=== PATIENT | male | born 1955 | race Caucasian/White ===

== ENCOUNTER 2017-04-27 09:08 | Inpatient (IN) | payer MEDICARE ==
[2017-04-27] VITALS (11 sets, daily range): BP systolic 116–172; BP diastolic 58–79; PULSE 63–87; RESP 16–20; TEMP 97.7–98.4; O2SAT 97–99
[~2017-04-27] VITALS: Ht 170.2 cm; Wt 102.2 kg
[~2017-04-27 09:08] MED LIST: ATEN100T PO; BETA0.054 TOPICAL; MEDI220T PO; POTA10CA PO; TRAM50TA PO
--- NOTE | 2017-04-27 09:42 | PD ---
HPI Chief Complaint: Abdominal Pain Time Seen by Provider: 09:27 Travel History International Travel<30 days: No Contact w/Intl Traveler<30days: No Traveled to known affect area: No History of Present Illness HPI Patient is a 62-year-old male presents to emergency room with complaints of chest and abdominal pain. Patient reports that since Wednesday night (3 days ago ), he has been having abdominal pain. Patient reports that he ate spaghetti and meatballs for dinner, reports that after that, he had severe epigastric pain. Patient reports that pain progressed until the next day, reports that he has severe pain after he eats a meal, reports that he is epigastric in nature, reports that he gets diaphoretic and nauseous with the symptoms. Reports that symptoms can last for an hour and a half to alot longer and usually resolves by itself. Patient describes this sensation as a "tearing sensation to my chest". Reports that he has never had this in the past. Patient reports that he woke up this morning and drank a cup of coffee which "set off all my symptoms." Denies history of CO, ACS. PFSH Past Medical History High Cholesterol: Yes Diabetes: No Diminished Hearing: No Hypertension: Yes Musculoskeletal: Yes (CHRONIC BACK PAIN) Past Surgical History Surgical History: No Previous Surgery Social History Alcohol Use: No Tobacco Use: No Substance Use: No Allergies-Medications (Allergen,Severity, Reaction): Coded Allergies: niacin (Unverified Allergy, Mild, Rash, 04/27/17) Reported Meds & Prescriptions Reported Meds & Active Scripts Active Reported Potassium Chloride ER (Potassium Chloride) 10 Meq Cap 10 Meq PO DAILY Tramadol (Tramadol HCl) 50 Mg Tab 50 Mg PO Q6H PRN Atenolol 100 Mg Tab 100 Mg PO HS Review of Systems General / Constitutional: No: Fever Eyes: No: Visual changes HENT: No: Headaches Cardiovascular: Positive: Chest Pain or Discomfort, Diaphoresis Respiratory: No: Shortness of Breath Gastrointestinal: Positive: Nausea, Vomiting, Abdominal Pain, No: Diarrhea, Constipation Genitourinary: No: Dysuria Musculoskeletal: No: Pain Skin: No Rash Neurologic: No: Weakness Psychiatric: No: Depression Endocrine: No: Polydipsia Hematologic/Lymphatic: No: Easy Bruising Physical Exam Narrative GENERAL: Moderate distress SKIN: Focused skin assessment warm/dry. Patient diaphoretic on exam HEAD: Atraumatic. Normocephalic. EYES: Pupils equal and round. No scleral icterus. No injection or drainage. ENT: No nasal bleeding or discharge. Mucous membranes pink and moist. NECK: Trachea midline. No JVD. CARDIOVASCULAR: Regular rate and rhythm. No murmur appreciated. RESPIRATORY: No accessory muscle use. Clear to auscultation. Breath sounds equal bilaterally. GASTROINTESTINAL: Abdomen soft, patient with increased tenderness to his epigastrium to an abdomen diffusely MUSCULOSKELETAL: No obvious deformities. No clubbing. No cyanosis. No edema. NEUROLOGICAL: Awake and alert. No obvious cranial nerve deficits. Motor grossly within normal limits. Normal speech. PSYCHIATRIC: Appropriate mood and affect; insight and judgment normal. Data Data Last Documented VS Vital Signs Date Time Temp Pulse Resp B/P (MAP) Pulse Ox O2 Delivery O2 Flow Rate FiO2 04/27/17 11:59 74 16 143/68 (93) 99 Room Air 04/27/17 09:20 2.00 04/27/17 09:18 97.7 Orders Orders B-Type Natriuretic Peptide (04/27/17 09:33) Ckmb (Isoenzyme) Profile (04/27/17 09:33) Complete Blood Count With Diff (04/27/17 09:33) Comprehensive Metabolic Panel (04/27/17 09:33) Magnesium (Mg) (04/27/17 09:33) Prothrombin Time / Inr (Pt) (04/27/17 09:33) Act Partial Throm Time (Ptt) (04/27/17 09:33) Troponin I (04/27/17 09:33) Lipase (04/27/17 09:33) Chest, Single Ap (04/27/17 09:33) Ecg Monitoring (04/27/17 09:33) Bilateral Bp Monitoring (04/27/17 09:33) Iv Access Insert/Monitor (04/27/17 09:33) Oximetry (04/27/17 09:33) Sodium Chloride 0.9% Flush (Ns Flush) (04/27/17 09:45) Cta Thor Abd Aorta W Iv C W3d (04/27/17 09:33) Sodium Chlor 0.9% 1000 Ml Inj (Ns 1000 M (04/27/17 09:45) Famotidine Inj (Pepcid Inj) (04/27/17 09:45) Al-Mag Hy-Si 40-40-4 Mg/Ml Liq (Mag-Al P (04/27/17 09:45) Lidocaine 2% Viscous (Xylocaine 2% Visco (04/27/17 09:45) Ckmb (Isoenzyme) Profile (04/27/17 12:00) Troponin I (04/27/17 12:00) CKMB (04/27/17 09:00) CKMB% (04/27/17 09:00) Us Abdomen Gallbladder (04/27/17 ) Potassium Chlor 20 Meq Premix (Kcl 20 Me (04/27/17 10:45) Iohexol 350 Inj (Omnipaque 350 Inj) (04/27/17 10:59) Consult General Surgery (04/27/17 ) Electrocardiogram (04/27/17 ) Sodium Chlor 0.9% 1000 Ml Inj (Ns 1000 M (04/27/17 12:15) Admit Order (Ed Use Only) (04/27/17 12:06) Labs Laboratory Tests Test 04/27/17 09:00 04/27/17 11:58 White Blood Count 11.8 TH/MM3 Red Blood Count 5.55 MIL/MM3 Hemoglobin 17.0 GM/DL Hematocrit 50.2 % Mean Corpuscular Volume 90.4 FL Mean Corpuscular Hemoglobin 30.6 PG Mean Corpuscular Hemoglobin Concent 33.8 % Red Cell Distribution Width 13.1 % Platelet Count 276 TH/MM3 Mean Platelet Volume 8.5 FL Neutrophils (%) (Auto) 56.7 % Lymphocytes (%) (Auto) 23.6 % Monocytes (%) (Auto) 12.4 % Eosinophils (%) (Auto) 6.5 % Basophils (%) (Auto) 0.8 % Neutrophils # (Auto) 6.6 TH/MM3 Lymphocytes # (Auto) 2.8 TH/MM3 Monocytes # (Auto) 1.5 TH/MM3 Eosinophils # (Auto) 0.8 TH/MM3 Basophils # (Auto) 0.1 TH/MM3 CBC Comment DIFF FINAL Differential Comment Prothrombin Time 11.1 SEC Prothromb Time International Ratio 1.0 RATIO Activated Partial Thromboplast Time 28.8 SEC Blood Urea Nitrogen 15 MG/DL Creatinine 0.86 MG/DL Random Glucose 112 MG/DL Total Protein 8.1 GM/DL Albumin 3.6 GM/DL Calcium Level 9.0 MG/DL Magnesium Level 2.2 MG/DL Alkaline Phosphatase 139 U/L Aspartate Amino Transf (AST/SGOT) 153 U/L Alanine Aminotransferase (ALT/SGPT) 315 U/L Total Bilirubin 4.4 MG/DL Sodium Level 137 MEQ/L Potassium Level 3.3 MEQ/L Chloride Level 96 MEQ/L Carbon Dioxide Level 31.0 MEQ/L Anion Gap 10 MEQ/L Estimat Glomerular Filtration Rate 90 ML/MIN Total Creatine Kinase 158 U/L Creatine Kinase MB 1.5 NG/ML Troponin I LESS THAN 0.02 NG/ML B-Type Natriuretic Peptide 13 PG/ML Lipase 442 U/L [facility] Medical Decision Making Medical Screen Exam Complete: Yes Emergency Medical Condition: Yes Medical Record Reviewed: Yes Interpretation(s) EKG at 0917 Sinus maddie at 59bpm, qt/qtc: 418/418, nonspecific t wave changes Vital Signs Date Time Temp Pulse Resp B/P (MAP) Pulse Ox O2 Delivery O2 Flow Rate FiO2 04/27/17 09:18 97.7 64 18 172/79 (110) 98 Differential Diagnosis Differential includes ACS, arrhythmia, aortic dissection, gastritis, gastric enteritis, esophagitis, gastric ulcer, colitis Narrative Course 62-year-old male who presents to emergency room with complaints of abdominal pain and chest pain has been intermittent for the past 3 days. Patient reports that symptoms are exacerbated by eating or drinking anything including water. Patient reports the symptoms began this morning after he drank a cup of coffee. He shouldn't presents to emergency room diaphoretic, patient with epigastric tenderness and diffuse abdominal pain. Patient was placed on a cardiac rehabilitation program director upon arrival to the emergency room. An EKG was obtained - patient with no acute changes. Lab work including cardiac enzymes, CBC, CMP, lipase was ordered. CTA was ordered to rule out dissection as patient has tearing sensation see epigastrium. Plan to continue to monitor Vital Signs Date Time Temp Pulse Resp B/P (MAP) Pulse Ox O2 Delivery O2 Flow Rate FiO2 04/27/17 10:30 64 16 145/73 (97) 98 Room Air 04/27/17 09:30 63 16 138/67 (90) 04/27/17 09:20 16 98 Nasal Cannula 2.00 04/27/17 09:18 97.7 64 18 172/79 (110) 98 Laboratory Tests Test 04/27/17 09:00 White Blood Count 11.8 TH/MM3 (4.0-11.0) Red Blood Count 5.55 MIL/MM3 (4.50-5.90) Hemoglobin 17.0 GM/DL (13.0-17.0) Hematocrit 50.2 % (39.0-51.0) Mean Corpuscular Volume 90.4 FL (80.0-100.0) Mean Corpuscular Hemoglobin 30.6 PG (27.0-34.0) Mean Corpuscular Hemoglobin Concent 33.8 % (32.0-36.0) Red Cell Distribution Width 13.1 % (11.6-17.2) Platelet Count 276 TH/MM3 (150-450) Mean Platelet Volume 8.5 FL (7.0-11.0) Neutrophils (%) (Auto) 56.7 % (16.0-70.0) Lymphocytes (%) (Auto) 23.6 % (9.0-44.0) Monocytes (%) (Auto) 12.4 % (0.0-8.0) Eosinophils (%) (Auto) 6.5 % (0.0-4.0) Basophils (%) (Auto) 0.8 % (0.0-2.0) Neutrophils # (Auto) 6.6 TH/MM3 (1.8-7.7) Lymphocytes # (Auto) 2.8 TH/MM3 (1.0-4.8) Monocytes # (Auto) 1.5 TH/MM3 (0-0.9) Eosinophils # (Auto) 0.8 TH/MM3 (0-0.4) Basophils # (Auto) 0.1 TH/MM3 (0-0.2) CBC Comment DIFF FINAL Differential Comment Prothrombin Time 11.1 SEC (9.8-11.6) Prothromb Time International Ratio 1.0 RATIO Activated Partial Thromboplast Time 28.8 SEC (24.3-30.1) Blood Urea Nitrogen 15 MG/DL (7-18) Creatinine 0.86 MG/DL (0.60-1.30) Random Glucose 112 MG/DL (74-106) Total Protein 8.1 GM/DL (6.4-8.2) Albumin 3.6 GM/DL (3.4-5.0) Calcium Level 9.0 MG/DL (8.5-10.1) Magnesium Level 2.2 MG/DL (1.5-2.5) Alkaline Phosphatase 139 U/L (45-117) Aspartate Amino Transf (AST/SGOT) 153 U/L (15-37) Alanine Aminotransferase (ALT/SGPT) 315 U/L (12-78) Total Bilirubin 4.4 MG/DL (0.2-1.0) Sodium Level 137 MEQ/L (136-145) Potassium Level 3.3 MEQ/L (3.5-5.1) Chloride Level 96 MEQ/L (98-107) Carbon Dioxide Level 31.0 MEQ/L (21.0-32.0) Anion Gap 10 MEQ/L (5-15) Estimat Glomerular Filtration Rate 90 ML/MIN (>89) Total Creatine Kinase 158 U/L (39-308) Creatine Kinase MB 1.5 NG/ML (0.5-3.6) Troponin I LESS THAN 0.02 NG/ML B-Type Natriuretic Peptide 13 PG/ML (0-100) Lipase 442 U/L (73-393) AST 153 ALT 315 Tbili 4.4 Lipase 442 RUQ US ordered Last Impressions Chest X-Ray 04/27/17932 Signed Impressions: Service Date/Time: Thursday, April 27, 2017 09:56 - CONCLUSION: No acute disease. Salvador Dickerson Jr., MD Aorta CTA 04/27/17932 Signed Impressions: Service Date/Time: Thursday, April 27, 2017 10:44 - CONCLUSION: 1. No aortic dissection or aneurysm. 2. Mild coronary artery atherosclerotic calcifications. 3. Hepatic steatosis. 4. Cholelithiasis. Salvador Dickerson Jr., MD Gall Bladder Ultrasound 04/27/17 0000 Signed Impressions: Service Date/Time: Thursday, April 27, 2017 11:08 - CONCLUSION: 1. Gallstones in the gallbladder. 2. Upper limits of normal or mildly prominent common bile duct 7 mm. No dilated biliary ducts. Recommend correlation with liver laboratory values. 3. Diffusely enlarged fatty liver. Jono Zaldivar MD Patient with gallstones and gallbladder, mildly prominent common bile duct, T bili of 4.4, AST 153, ALT 315, alkaline phosphatase 139, lipase [address] Anderson who will see patient in consult. Concern for biliary obstruction. Patient will require further workup including ERCP. Plan to admit to medicine service and transferred to [facility] at request of Dr. Allen Case reviewed with Dr. Page who accepts pt to service Diagnosis Primary Impression: Biliary obstruction Admitting Information Admitting Physician Requests: Pati Pinto DO Apr 27, 2017 09:42
[2017-04-27] MEDS ORDERED: FAMOTIDINE 20 MG/2 ML VIAL IV PUSH ONE (09:45)
[2017-04-27] MEDS ORDERED: LIDOCAINE VISCOUS 2% SOLN 15 ML UDC PO ONE (09:45)
[2017-04-27] MEDS ORDERED: SODIUM CHLOR 0.9% 1000 ML INJ 1,000 ML IV ONE ×2 (09:45→12:15)
[2017-04-27] MEDS ORDERED: ALUMINUM/MAGNESIUM/SIMETH 30 ML CUP PO ONE (09:45)
[2017-04-27] MEDS: SODIUM CHLORIDE 0.9% FLUSH 10 ML FLUSH IVF PRN ×2 (09:54→12:09)
[2017-04-27 09:55] LABS: CHLORIDE 96 MEQ/L (98-107); POTASSIUM 3.3 MEQ/L (3.5-5.1); SODIUM (NA) 137 MEQ/L (136-145)
[2017-04-27 09:58] LABS: ANION GAP 10 MEQ/L (5-15); BLOOD UREA NITROGEN 15 MG/DL (7-18); MAGNESIUM 2.2 MG/DL (1.5-2.5)
[2017-04-27 09:59] LABS: APTT (PATIENT) 28.8 SEC (24.3-30.1); AUTOMATED NEUTROPHIL # 6.6 TH/MM3 (1.8-7.7); BASOPHIL # 0.1 TH/MM3 (0-0.2); BASOPHIL % 0.8 % (0.0-2.0); EOSINOPHIL # 0.8 TH/MM3 (0-0.4); EOSINOPHIL % 6.5 % (0.0-4.0); HEMATOCRIT 50.2 % (39.0-51.0); LYMPH % 23.6 % (9.0-44.0); LYMPHOCYTE # 2.8 TH/MM3 (1.0-4.8); MEAN CELL VOLUME 90.4 FL (80.0-100.0); MEAN CORPUSCULAR HEMOGLOBIN 30.6 PG (27.0-34.0); MEAN CORPUSCULAR HGB CONC 33.8 % (32.0-36.0); MONO % 12.4 % (0.0-8.0); NEUT % 56.7 % (16.0-70.0); PLATELET COUNT 276 TH/MM3 (150-450); PROTHROMBIN TIME - PATIENT 11.1 SEC (9.8-11.6); RED BLOOD COUNT 5.55 MIL/MM3 (4.50-5.90); RED CELL DISTRIBUTION WIDTH 13.1 % (11.6-17.2); WHITE BLOOD COUNT 11.8 TH/MM3 (4.0-11.0)
[2017-04-27 10:01] LABS: ALT (GPT) 315 U/L (12-78); AST (GOT) 153 U/L (15-37); GLOMERULAR FILTRATION RATE 90 ML/MIN (>89)
[2017-04-27 10:02] LABS: HEMO FLAGS DIFF FINAL
[2017-04-27 10:03] LABS: TOTAL BILIRUBIN ADULT 4.4 MG/DL (0.2-1.0)
[2017-04-27 10:04] LABS: ALKALINE PHOSPHATASE 139 U/L (45-117); CREATINE KINASE 158 U/L (39-308)
--- NOTE | 2017-04-27 10:11 | RADRPT ---
EXAM DATE/TIME: 04/27/2017 09:56 [facility] COMPARISON: No previous studies available for comparison. INDICATIONS : Epigastric pain this morning. Nausea and vomiting for 1 week. MEDICAL HISTORY : Hypertension. Hypercholesterolemia. SURGICAL HISTORY : None. ENCOUNTER: Initial ACUITY: 1 week PAIN SCORE: 7/10 LOCATION: Bilateral chest FINDINGS: A single view of the chest demonstrates the lungs to be symmetrically aerated without evidence of mas s, infiltrate or effusion. Prominence to the right peritracheal stripe terminates at the level the cl avicular head in this patient is rotated towards the right. This prominence is felt related to the pa tient's vasculature owing to the rotation. The cardiomediastinal contours are unremarkable. Osseous structures are intact. CONCLUSION: No acute disease. Salvador Dickerson Jr., MD on April 27, 2017 at 10:08 Board Certified Radiologist. This report was verified electronically.
[2017-04-27 10:16] LABS: CKMB 1.5 NG/ML (0.5-3.6)
[2017-04-27] MEDS ORDERED: IOHEXOL 350 MG/ML 10 ML VIAL (for RAD DIAG) IVCONTRAST ONE (10:59)
--- NOTE | 2017-04-27 11:34 | RADRPT ---
EXAM DATE/TIME: 04/27/2017 11:08 [facility] COMPARISON: No previous studies available for comparison. INDICATIONS : Right upper quadrant pain. MEDICAL HISTORY : Hypercholesterolemia. Hypertension. SURGICAL HISTORY : None. ENCOUNTER: Initial ACUITY: 3 days PAIN SCORE: 10 LOCATION: Right upper quadrant MEASUREMENTS: LIVER: 20 cm length COMMON DUCT: 7 mm RIGHT KIDNEY: 12.1 x 6.4 x 6.8 cm FINDINGS: LIVER: Liver is diffusely enlarged with fatty infiltration. No dilated biliary ducts. The portal system is p atent. There is no evidence of ascites. COMMON DUCT: No intraluminal mass or stone visualized. GALLBLADDER: There are some stones in the gallbladder. The largest node measures 9 mm. No gallbladder wall thicken ing. However there may be a trace of fluid around the gallbladder. PANCREAS: Nonvisualized RIGHT KIDNEY: No evidence of hydronephrosis, stone, or mass. CONCLUSION: 1. Gallstones in the gallbladder. 2. Upper limits of normal or mildly prominent common bile duct 7 mm. No dilated biliary ducts. Recomm end correlation with liver laboratory values. 3. Diffusely enlarged fatty liver. Jono Zaldivar MD on April 27, 2017 at 11:30 Board Certified Radiologist. This report was verified electronically.
--- NOTE | 2017-04-27 11:35 | RADRPT ---
EXAM DATE/TIME: 04/27/2017 10:44 [facility] COMPARISON: No previous studies available for comparison. INDICATIONS : Severe chest and abdominal pain. Diaphoretic and nauseous. Evaluate for dissection. IV CONTRAST: 95 cc Omnipaque 350 (iohexol) IV RADIATION DOSE: 24.22 CTDIvol (mGy) MEDICAL HISTORY : Hypertension. Hypercholesterolemia. SURGICAL HISTORY : None. ENCOUNTER: Initial ACUITY: 3 days PAIN SCALE: 8/10 LOCATION: chest TECHNIQUE: Volumetric scanning was performed using a multi-row detector CT scanner. The data was post processed with a variety of visualization algorithms including full volume maximum intensity projection, multi -planar sliding thin slab reformation, curved planar reformation, and surface rendering techniques. Using automated exposure control and adjustment of the mA and/or kV according to patient size, radiat ion dose was kept as low as reasonably achievable to obtain optimal diagnostic quality images. DICOM format image data is available electronically for review and comparison. FINDINGS: Thoracic/abdominal aorta: The thoracic and abdominal aorta shows a normal caliber and course. No aneurysm or dissection. The or igin of the arch vessels are obscured by beam hardening artifact from the contrast within the brachio cephalic vein. The visualized portions of the arch vessels are patent. The inflow vessels, celiac, SM A, KARON, and renal arteries are patent bilaterally. Heart and mediastinum: The heart is normal in size. No pericardial effusion. Coronary artery atherosclerotic calcifications are noted. Pulmonary arteries are normal in caliber. No adenopathy or mass. Lung parenchyma: The lungs are clear. Small calcified granulomas seen on the left. No worrisome nodules. No infiltrate s. No effusions. Other structures: Tiny calcified gallstones within an otherwise normal-appearing gallbladder. Diffuse hepatic steatosis . A degenerative lumbar spine. A sclerotic focus involving the proximal right femur without bony dest ruction or endosteal scalloping. CONCLUSION: 1. No aortic dissection or aneurysm. 2. Mild coronary artery atherosclerotic calcifications. 3. Hepatic steatosis. 4. Cholelithiasis. Salvador Dickerson Jr., MD on April 27, 2017 at 11:26 Board Certified Radiologist. This report was verified electronically.
[2017-04-27] MEDS: POTASSIUM CHLOR 20 MEQ PREMIX 100 ML IV SCH ×2 (12:09→16:11)
[2017-04-27] MEDS ORDERED: MAGNESIUM HYDROXIDE SUSP 30 ML CUP PO PRN (12:15)
[2017-04-27] MEDS ORDERED: ACETAMINOPHEN 325 MG TAB PO PRN (12:15)
[2017-04-27] MEDS ORDERED: SODIUM CHLORIDE 0.9% FLUSH 10 ML FLUSH IV FLUSH PRN (12:15)
[2017-04-27] MEDS ORDERED: ONDANSETRON HCL 4 MG/2 ML VIAL IVP PRN (12:15)
[2017-04-27] MEDS ORDERED: LACTULOSE SYRUP 20 GM/30 ML CUP PO PRN (12:15)
[2017-04-27] MEDS ORDERED: HYDROmorphone HCL PF 0.5 MG/0.5 ML SYRINGE IV PUSH PRN (12:15)
[2017-04-27] MEDS ORDERED: ACETAMINOPHEN/HYDROcodone 325 MG/5 MG TAB PO PRN (12:15)
[2017-04-27] MEDS ORDERED: SENNOSIDES 8.6 MG TAB PO PRN (12:15)
[2017-04-27] MEDS ORDERED: NALOXONE HCL 0.4 MG/ML AMP IV PUSH PRN (12:15)
[2017-04-27] MEDS ORDERED: BISACODYL 10 MG SUPP RECTAL PRN (12:15)
[2017-04-27 12:25] LABS: CREATINE KINASE 128 U/L (39-308)
[2017-04-27 12:37] LABS: CKMB 1.3 NG/ML (0.5-3.6)
[2017-04-27] MEDS: SODIUM CHLOR 0.9% 1000 ML INJ 1,000 ML IV SCH ×2 (14:12→22:22)
[2017-04-27] MEDS ORDERED: AMPICILLIN-SULBACTAM INJ 3 GM VIAL IM SCH (15:00)
--- NOTE | 2017-04-27 15:13 | HHI.HP ---
HPI Service [facility] Hospitalists Primary Care Physician Kena Reyes MD Admission Diagnosis Biliary Duct obstruction Diagnoses: Chief Complaint: Abdominal pain Nausea/vomiting Travel History International Travel<30 Days: No Contact w/Intl Traveler <30 Da: No Traveled to Known Affected Are: No History of Present Illness Written by Katja Hernandez, acting as scribe for Dr. Page on 04/27/17 at 15: 13. This note was transcribed by scribe Katja Hernandez PA-C. I, Dr. Shayne Page personally performed the history, physical exam, and medical decision making; and confirmed the accuracy of the information in the transcribed note. Authenticated by Dr. Shayne Page on 04/27/17 at 15:15. This is a 62-year-old male with a past medical history significant for hypertension, dyslipidemia and chronic back pain who presented to [facility] [address] ED with complaints of abdominal pain for the past 3 days. Patient states that on Wednesday after eating spaghetti and meatballs he stood up took a deep breath and felt a "burning snap" rib cage. Patient states that the course of the evening the abdominal pain moved down to his abdomen and then dissipated on its own around 1:00 on Wednesday morning. He reports having similar but more severe symptoms following breakfast on Wednesday morning and then after eating dinner on Wednesday night both times resolving on its own after several hours. Wednesday he did not eat anything at all for a few any abdominal pain return. Patient reports that this morning he had a cup of coffee after he developed the abdominal pain again and decided to come into the ED for further evaluation. Patient states that he's had some intermittent fever and chills following meals for the past few days. He also reports 1 episode of emesis early on Wednesday morning which may have had some blood in it but he attributed the redness to spaghetti he'd eaten the night before. He denies any chest pain or radiation of the epigastric pain to his back. Patient denies any complaints of diarrhea or constipation. He denies any blood in stool. He denies any previous EGD or colonoscopy. At present, patient denies any complaints of abdominal pain and reports feeling well at this time. In the ED, CT of the aorta was unremarkable. Troponins less than 0.022. BNP 13. Patient was found to have hyperbilirubinemia. Gallbladder ultrasound was obtained showing gallstones in the gallbladder and a mildly prominent common bile duct. Review of Systems Except as stated in HPI: all other systems reviewed are Neg Past Family Social History Past Medical History Hypertension Chronic back pain Dyslipidemia Past Surgical History Patient denies any previous surgical procedures Reported Medications Potassium Chloride ER (Potassium Chloride) 10 Meq Cap 10 Meq PO DAILY Tramadol (Tramadol HCl) 50 Mg Tab 50 Mg PO Q6H PRN Atenolol 100 Mg Tab 100 Mg PO HS Allergies: Coded Allergies: niacin (Unverified Allergy, Mild, Rash, 04/27/17) Active Ordered Medications Current Medications Medications (Trade) Dose Ordered Sig/Kathi Route Start Time Stop Time Status Last Admin Sodium Chloride 1,000 ml @ 100 mls/hr Q10H IV 04/27/17 12:06 04/27/17 14:12 (NS Flush) 2 ml UNSCH PRN IV FLUSH 04/27/17 12:15 (NS Flush) 2 ml BID IV FLUSH 04/27/17 21:00 (Tylenol) 650 mg Q4H PRN PO 04/27/17 12:15 (Zofran Inj) 4 mg Q6H PRN IVP 04/27/17 12:15 (Narcan Inj) 0.4 mg UNSCH PRN IV PUSH 04/27/17 12:15 (Salma-Colace) 1 tab BID PO 04/27/17 21:00 (Milk Of Magnesia Liq) 30 ml Q12H PRN PO 04/27/17 12:15 (Senokot) 17.2 mg Q12H PRN PO 04/27/17 12:15 (Dulcolax Supp) 10 mg DAILY PRN RECTAL 04/27/17 12:15 (Lactulose Liq) 30 ml DAILY PRN PO 04/27/17 12:15 (Dilaudid Pf Inj) 0.5 mg Q4H PRN IV PUSH 04/27/17 12:15 (Unasyn Inj) 3 gm Q6H IM 04/27/17 15:00 UNV Family History Mother, alive, age 103 Father, hypertension, coronary artery disease with RI age 67 Social History Patient denies any tobacco use. He denies any alcohol consumption. Denies any illicit drug use. Patient is and lives with his . Physical Exam Vital Signs Vital Signs Date Time Temp Pulse Resp B/P (MAP) Pulse Ox O2 Delivery O2 Flow Rate FiO2 04/27/17 14:09 04/27/17 13:56 83 16 152/72 (98) 98 Room Air 04/27/17 13:52 16 04/27/17 13:30 74 16 147/77 (100) 97 Room Air 04/27/17 13:00 75 16 140/78 (98) 97 Room Air 04/27/17 11:59 74 16 143/68 (93) 99 Room Air 04/27/17 11:30 77 16 147/76 (99) 04/27/17 11:30 16 04/27/17 10:30 64 16 145/73 (97) 98 Room Air 04/27/17 09:30 63 16 138/67 (90) 04/27/17 09:20 16 98 Nasal Cannula 2.00 04/27/17 09:18 97.7 64 18 172/79 (110) 98 Physical Exam GENERAL: This is a well-nourished, well-developed obese patient, in no apparent distress. Awake and alert. Pleasant and talkative. Appears comfortable. SKIN: No rashes, ecchymoses or lesions. Cool and dry. HEAD: Atraumatic. Normocephalic. No temporal or scalp tenderness. EYES: Pupils equal round and reactive. Extraocular motions intact. No scleral icterus. No injection or drainage. ENT: Nose without bleeding, purulent drainage. Throat without erythema, tonsillar hypertrophy or exudate. Uvula midline. Airway patent. NECK: Trachea midline. No lymphadenopathy. Supple, nontender, no meningeal signs. CARDIOVASCULAR: Regular rate and rhythm without murmurs, gallops, or rubs. RESPIRATORY: Clear to auscultation. Breath sounds equal bilaterally. No wheezes , rales, or rhonchi. GASTROINTESTINAL: Abdomen soft, non-tender, nondistended. No hepato-splenomegaly , or palpable masses. No guarding. MUSCULOSKELETAL: Extremities without clubbing, cyanosis, or edema. No joint tenderness, effusion, or edema noted. No calf tenderness. NEUROLOGICAL: Awake and alert. Able to move all extremities spontaneously. No focal neurologic findings appreciated. Normal speech. Laboratory Laboratory Tests Test 04/27/17 09:00 04/27/17 11:58 White Blood Count 11.8 Red Blood Count 5.55 Hemoglobin 17.0 Hematocrit 50.2 Mean Corpuscular Volume 90.4 Mean Corpuscular Hemoglobin 30.6 Mean Corpuscular Hemoglobin Concent 33.8 Red Cell Distribution Width 13.1 Platelet Count 276 Mean Platelet Volume 8.5 Neutrophils (%) (Auto) 56.7 Lymphocytes (%) (Auto) 23.6 Monocytes (%) (Auto) 12.4 Eosinophils (%) (Auto) 6.5 Basophils (%) (Auto) 0.8 Neutrophils # (Auto) 6.6 Lymphocytes # (Auto) 2.8 Monocytes # (Auto) 1.5 Eosinophils # (Auto) 0.8 Basophils # (Auto) 0.1 CBC Comment DIFF FINAL Differential Comment Prothrombin Time 11.1 Prothromb Time International Ratio 1.0 Activated Partial Thromboplast Time 28.8 Blood Urea Nitrogen 15 Creatinine 0.86 Random Glucose 112 Total Protein 8.1 Albumin 3.6 Calcium Level 9.0 Magnesium Level 2.2 Alkaline Phosphatase 139 Aspartate Amino Transf (AST/SGOT) 153 Alanine Aminotransferase (ALT/SGPT) 315 Total Bilirubin 4.4 Sodium Level 137 Potassium Level 3.3 Chloride Level 96 Carbon Dioxide Level 31.0 Anion Gap 10 Estimat Glomerular Filtration Rate 90 Total Creatine Kinase 158 128 Creatine Kinase MB 1.5 1.3 Troponin I LESS THAN 0.02 LESS THAN 0.02 B-Type Natriuretic Peptide 13 Lipase 442 Result Diagram: 04/27/1789904/27/17899 Imaging Last Impressions Chest X-Ray 04/27/17932 Signed Impressions: Service Date/Time: Thursday, April 27, 2017 09:56 - CONCLUSION: No acute disease. Salvador Dickerson Jr., MD Aorta CTA 04/27/17932 Signed Impressions: Service Date/Time: Thursday, April 27, 2017 10:44 - CONCLUSION: 1. No aortic dissection or aneurysm. 2. Mild coronary artery atherosclerotic calcifications. 3. Hepatic steatosis. 4. Cholelithiasis. Salvador Dickerson Jr., MD Gall Bladder Ultrasound 04/27/17 0000 Signed Impressions: Service Date/Time: Thursday, April 27, 2017 11:08 - CONCLUSION: 1. Gallstones in the gallbladder. 2. Upper limits of normal or mildly prominent common bile duct 7 mm. No dilated biliary ducts. Recommend correlation with liver laboratory values. 3. Diffusely enlarged fatty liver. MD Kobe Meza VTE Risk Assessment Kobe VTE Risk Assessment: Mod/High Risk (score >= 2) VTE Pharm Contraindication: possible pending procedure Caprini Risk Assessment Model Point Value = 1 Point Value = 2 Point Value = 3 Point Value = 5 Age 41-60 Minor surgery BMI > 25 kg/m2 Swollen legs Varicose veins or History of unexplained or recurrent spontaneous Oral contraceptives or hormone replacement Sepsis (< 1 month) Serious lung disease, including pneumonia (< 1 month) Abnormal pulmonary function Acute myocardial infarction Congestive heart failure (< 1 month) History of inflammatory bowel disease Medical patient at bed rest Age 61-74 Arthroscopic surgery Major open surgery (> 45 min) Laparoscopic surgery (> 45 min) Malignancy Confined to bed (> 72 hours) Immobilizing plaster cast Central venous access Age >= 75 History of VTE Family history of VTE Factor V Leiden Prothrombin 28115A Lupus anticoagulant Anticardiolipin antibodies Elevated serum homocysteine Heparin-induced thrombocytopenia Other congenital or acquired thrombophilia Stroke (< 1 month) Elective arthroplasty Hip, pelvis, or leg fracture Acute spinal cord injury (< 1 month) Prophylaxis Regimen Total Risk Factor Score Risk Level Prophylaxis Regimen 0-1 Low Early ambulation 2 Moderate Order ONE of the following: *Sequential Compression Device (SCD) *Heparin 5000 units SQ BID 3-4 Higher Order ONE of the following medications: *Heparin 5000 units SQ TID *Enoxaparin/Lovenox 40 mg SQ daily (WT < 150 kg, CrCl > 30 mL/min) *Enoxaparin/Lovenox 30 mg SQ daily (WT < 150 kg, CrCl > 10-29 mL/min) *Enoxaparin/Lovenox 30 mg SQ BID (WT < 150 kg, CrCl > 30 mL/min) AND/OR *Sequential Compression Device (SCD) 5 or more Highest Order ONE of the following medications: *Heparin 5000 units SQ TID (Preferred with Epidurals) *Enoxaparin/Lovenox 40 mg SQ daily (WT < 150 kg, CrCl > 30 mL/min) *Enoxaparin/Lovenox 30 mg SQ daily (WT < 150 kg, CrCl > 10-29 mL/min) *Enoxaparin/Lovenox 30 mg SQ BID (WT < 150 kg, CrCl > 30 mL/min) AND *Sequential Compression Device (SCD) Assessment and Plan Problem List: (1) Choledocholithiasis with obstruction ICD Code: K80.51 - Calculus of bile duct without cholangitis or cholecystitis with obstruction (2) HTN (hypertension) ICD Code: I10 - Essential (primary) hypertension Assessment and Plan 62-year-old male with a past medical history significant for hypertension, dyslipidemia and chronic back pain who presented to [facility] [address] ED with complaints of abdominal pain for the past 3 days following meals found to have hyperbilirubinemia and cholelithiasis. Epigastric abdominal pain with hyperbilirubinemia, transaminitis and cholelithiasis Choledocholithiasis - Suspect secondary to biliary obstruction - Gallbladder ultrasound personally reviewed showing gallstones in the gallbladder and mildly prominent common bile duct and diffusely enlarged fatty liver. - Consult GI. MRCP ordered. Depending on the finding of MRCP, Patient will likely need ERCP - Dr. Anderson consulted by ED physician, appreciate his recommendations - Clear liquid diet - IV Unasyn 3 g every 6h - IVF - Pain management as needed - Monitor LFTs Hypertension - BP adequately controlled at present - Hold patient's home dose of atenolol 100 mg for now. If BP meds are necessary, we will consider Amlodipine. Chronic back pain - Asymptomatic at present Hypokalemia - Patient on potassium supplementation at home - Replete - A.m. labs to monitor response Full code. SCDs. Update on 04/27/2017 11:31PM - MRCP shows possible filling defect. GI plans to perform ERCP tomorrow morning. Last Impressions Chest X-Ray 04/27/17932 Signed Impressions: Service Date/Time: Thursday, April 27, 2017 09:56 - CONCLUSION: No acute disease. Salvador Dickerson Jr., MD Aorta CTA 04/27/17932 Signed Impressions: Service Date/Time: Thursday, April 27, 2017 10:44 - CONCLUSION: 1. No aortic dissection or aneurysm. 2. Mild coronary artery atherosclerotic calcifications. 3. Hepatic steatosis. 4. Cholelithiasis. Salvador Dickerson Jr., MD Gall Bladder Ultrasound 04/27/17 0000 Signed Impressions: Service Date/Time: Thursday, April 27, 2017 11:08 - CONCLUSION: 1. Gallstones in the gallbladder. 2. Upper limits of normal or mildly prominent common bile duct 7 mm. No dilated biliary ducts. Recommend correlation with liver laboratory values. 3. Diffusely enlarged fatty liver. Jono Zaldivar MD Cholangiopancreatography MRI 04/27/17 0000 Signed Impressions: Service Date/Time: Thursday, April 27, 2017 18:25 - CONCLUSION: 1. Fatty liver. 2. Questionable filling defect probably artifactual involving distal common bile duct and the common bile duct itself is not particularly dilated. Temi Gomes MD Discussed Condition With Patient, ED physician Physician Certification 2 Midnight Certification Type: Admission for Inpatient Services Order for Inpatient Services The services are ordered in accordance with Medicare regulations or non- Medicare payer requirements, as applicable. In the case of services not specified as inpatient-only, they are appropriately provided as inpatient services in accordance with the 2-midnight benchmark. Estimated LOS (days): 3 3 days is the estimated time the patient will need to remain in the hospital, assuming treatment plan goals are met and no additional complications. Post-Hospital Plan: Not yet determined Katja Hernandez Apr 27, 2017 15:13 Armand Page DO Apr 27, 2017 15:14
--- NOTE | 2017-04-27 15:32 | PD.CAR.PN ---
CVT Progress Note Subjective/Hospital Course: Patient with the abdominal pain with cholelithiasis and hyperbilirubinemia Likely passing a stone but clearly spectral differential diagnosis in this area is present Referral received Full consult to shola Mckeon Objective: Vital Signs Date Time Temp Pulse Resp B/P (MAP) Pulse Ox O2 Delivery O2 Flow Rate FiO2 04/27/17 14:09 04/27/17 13:56 83 16 152/72 (98) 98 Room Air 04/27/17 13:52 16 04/27/17 13:30 74 16 147/77 (100) 97 Room Air 04/27/17 13:00 75 16 140/78 (98) 97 Room Air 04/27/17 11:59 74 16 143/68 (93) 99 Room Air 04/27/17 11:30 77 16 147/76 (99) 04/27/17 11:30 16 04/27/17 10:30 64 16 145/73 (97) 98 Room Air 04/27/17 09:30 63 16 138/67 (90) 04/27/17 09:20 16 98 Nasal Cannula 2.00 04/27/17 09:18 97.7 64 18 172/79 (110) 98 Labs: Laboratory Tests Test 04/27/17 09:00 04/27/17 11:58 White Blood Count 11.8 TH/MM3 (4.0-11.0) Red Blood Count 5.55 MIL/MM3 (4.50-5.90) Hemoglobin 17.0 GM/DL (13.0-17.0) Hematocrit 50.2 % (39.0-51.0) Mean Corpuscular Volume 90.4 FL (80.0-100.0) Mean Corpuscular Hemoglobin 30.6 PG (27.0-34.0) Mean Corpuscular Hemoglobin Concent 33.8 % (32.0-36.0) Red Cell Distribution Width 13.1 % (11.6-17.2) Platelet Count 276 TH/MM3 (150-450) Mean Platelet Volume 8.5 FL (7.0-11.0) Neutrophils (%) (Auto) 56.7 % (16.0-70.0) Lymphocytes (%) (Auto) 23.6 % (9.0-44.0) Monocytes (%) (Auto) 12.4 % (0.0-8.0) Eosinophils (%) (Auto) 6.5 % (0.0-4.0) Basophils (%) (Auto) 0.8 % (0.0-2.0) Neutrophils # (Auto) 6.6 TH/MM3 (1.8-7.7) Lymphocytes # (Auto) 2.8 TH/MM3 (1.0-4.8) Monocytes # (Auto) 1.5 TH/MM3 (0-0.9) Eosinophils # (Auto) 0.8 TH/MM3 (0-0.4) Basophils # (Auto) 0.1 TH/MM3 (0-0.2) CBC Comment DIFF FINAL Differential Comment Prothrombin Time 11.1 SEC (9.8-11.6) Prothromb Time International Ratio 1.0 RATIO Activated Partial Thromboplast Time 28.8 SEC (24.3-30.1) Blood Urea Nitrogen 15 MG/DL (7-18) Creatinine 0.86 MG/DL (0.60-1.30) Random Glucose 112 MG/DL (74-106) Total Protein 8.1 GM/DL (6.4-8.2) Albumin 3.6 GM/DL (3.4-5.0) Calcium Level 9.0 MG/DL (8.5-10.1) Magnesium Level 2.2 MG/DL (1.5-2.5) Alkaline Phosphatase 139 U/L (45-117) Aspartate Amino Transf (AST/SGOT) 153 U/L (15-37) Alanine Aminotransferase (ALT/SGPT) 315 U/L (12-78) Total Bilirubin 4.4 MG/DL (0.2-1.0) Sodium Level 137 MEQ/L (136-145) Potassium Level 3.3 MEQ/L (3.5-5.1) Chloride Level 96 MEQ/L (98-107) Carbon Dioxide Level 31.0 MEQ/L (21.0-32.0) Anion Gap 10 MEQ/L (5-15) Estimat Glomerular Filtration Rate 90 ML/MIN (>89) Total Creatine Kinase 158 U/L (39-308) 128 U/L (39-308) Creatine Kinase MB 1.5 NG/ML (0.5-3.6) 1.3 NG/ML (0.5-3.6) Troponin I LESS THAN 0.02 NG/ML LESS THAN 0.02 NG/ML B-Type Natriuretic Peptide 13 PG/ML (0-100) Lipase 442 U/L (73-393) Result Diagram: 04/27/1789904/27/17899 Binu Anderson MD Apr 27, 2017 15:32
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
[2017-04-27] MEDS ORDERED: AMPICILLIN/SULBAC 3 GM/NS 100 ML IV SCH ×2 (17:00)
[2017-04-27] MEDS ORDERED: POTASSIUM CHLORIDE 20 MEQ CONTROLLED RELEASE TAB PO ONE (17:15)
--- NOTE | 2017-04-27 19:16 | RADRPT ---
EXAM DATE/TIME: 04/27/2017 18:25 [facility] COMPARISON: US ABDOMEN - GALLBLADDER, April 27, 2017, 11:08. INDICATIONS : Abdominal pain. MEDICAL HISTORY : Hypertension. SURGICAL HISTORY : Mole removed. ENCOUNTER: Initial ACUITY: 3 day PAIN SCORE: 6/10 LOCATION: abdomen TECHNIQUE: Multiplanar, multisequence magnetic resonance imaging of the abdomen was performed. High-resolution 3D dataset was utilized to reconstruct maximum-intensity projection (MIP) images. FINDINGS: Peak bile duct measures almost 4 mm in maximum diameter and on the reconstructed coronal images there is a questionable filling defect measures 3 mm, however not reproduced on the axial T2 source i mages possibly artifactual. There are tiny cysts in both kidneys. The pancreas is unremarkable and th e liver is fatty. CONCLUSION: 1. Fatty liver. 2. Questionable filling defect probably artifactual involving distal common bile duct and the common bile duct itself is not particularly dilated. Temi Gomes MD on April 27, 2017 at 19:10 Board Certified Radiologist. This report was verified electronically.
--- NOTE | 2017-04-27 20:09 | MB ---
cc: ANA TEMPLETON MD DATE OF CONSULTATION 04/27/2017 REASON FOR CONSULTATION Cholelithiasis, hyperbilirubinemia partial common bile duct obstruction. HISTORY OF PRESENT ILLNESS This pleasant 62-year-old gentleman presents to the emergency room with two day history of abdominal pain. The patient describes the pain starting after he had ____ dinner. The pain was mainly epigastric radiating to the right upper quadrant then settled in the lower abdomen and went away. Since then, whatever the patient takes p.o. he gets a bout of abdominal pain, hence, the presentation. PAST MEDICAL HISTORY 1. Hypercholesteremia, 2. Hypertension 3. Back pain. PAST SURGICAL HISTORY The patient had some work done on his back but that was in the distant past. MEDICATIONS Can be found on record. SOCIAL HISTORY Does not smoke, drink. He is a healthy sanchez. REVIEW OF SYSTEMS Normal except for above-noted. PHYSICAL EXAMINATION GENERAL: A pleasant 62 year old male. HEENT: Normocephalic. No trauma to the head. Pupils equally reactive. Extraocular muscles intact. NECK: Supple, bilateral carotid pulses. No bruits. CHEST: Clear, bilateral breath sounds. HEART: Regular rhythm. ABDOMEN: Soft. Active bowel sounds. No rebound or guarding. No masses. No tenderness at this point. any tenderness that the patient had in the past has disappeared and the patient is now completely asymptomatic. EXTREMITIES: Grossly normal limits. Bilateral femoral, popliteal, dorsalis pedis, posterior pulses. No signs of vascular deficit NEUROLOGIC: The patient is fully intact. IMPRESSION AND RECOMMENDATION A pleasant 62-year-old gentleman with history that certainly looks like biliary colic with common duct stone passing down the to the duodenum. Bilirubin at this point is around 4 mg/dl which is consistent with partial common bile duct obstruction. Lipase is slightly elevated. I reviewed MRCP and indeed the patient has a small filling defect which is probably a floating stone in the common duct. At this point, the appropriate way to go is to go ahead with the ERCP, decompress the common duct and do laparoscopic cholecystectomy thereafter. The patient agrees with the plan and, when ERCP is completed, we will go ahead with surgery. It should also be noted the majority of the smaller stones under 5 mm will pass on their own, although this one seems to be holding up somewhere in the common duct so probably ERCP is the best way to go given the circumstances. I thank you much for referral.. Ana MCFARLANE/ /7:25 PM /7:54 PM
[2017-04-27] MEDS: SODIUM CHLORIDE 0.9% FLUSH 10 ML FLUSH IV FLUSH SCH (21:00)
[2017-04-27] MEDS: POTASSIUM CHLORIDE 20 MEQ CONTROLLED RELEASE TAB PO SCH ×2 (21:00→22:21)
[2017-04-27] MEDS: DOCUSATE SODIUM 50 MG/SENNA 8.6 MG TAB PO SCH ×2 (21:00→22:21)
[2017-04-27] MEDS: AMPICILLIN/SULBAC 3 GM/NS 100 ML IV SCH ×2 (22:20)
[2017-04-28] VITALS: BP 125/66; PULSE 84; RESP 20; TEMP 98.9; O2SAT 98
[2017-04-28] MEDS: AMPICILLIN/SULBAC 3 GM/NS 100 ML IV SCH ×8 (02:02→20:25)
[2017-04-28 04:00] VITALS: BP 133/74; PULSE 79; RESP 20; TEMP 98.3; O2SAT 98
[2017-04-28 08:00] VITALS: BP 150/84; PULSE 81; RESP 18; TEMP 98.6; O2SAT 98
[2017-04-28] MEDS: DOCUSATE SODIUM 50 MG/SENNA 8.6 MG TAB PO SCH ×2 (08:54→21:00)
[2017-04-28] MEDS: POTASSIUM CHLORIDE 20 MEQ CONTROLLED RELEASE TAB PO SCH ×3 (08:54→20:26)
[2017-04-28] MEDS: SODIUM CHLORIDE 0.9% FLUSH 10 ML FLUSH IV FLUSH SCH ×2 (08:55→20:27)
[2017-04-28] MEDS: SODIUM CHLOR 0.9% 1000 ML INJ 1,000 ML IV SCH ×2 (08:55→17:55)
[2017-04-28 10:46] LABS: AUTOMATED NEUTROPHIL # 6.1 TH/MM3 (1.8-7.7); BASOPHIL # 0.1 TH/MM3 (0-0.2); BASOPHIL % 0.8 % (0.0-2.0); EOSINOPHIL # 0.3 TH/MM3 (0-0.4); EOSINOPHIL % 2.8 % (0.0-4.0); HEMATOCRIT 46.3 % (39.0-51.0); HEMO FLAGS DIFF FINAL; LYMPH % 18.7 % (9.0-44.0); LYMPHOCYTE # 1.7 TH/MM3 (1.0-4.8); MEAN CELL VOLUME 90.1 FL (80.0-100.0); MEAN CORPUSCULAR HEMOGLOBIN 30.7 PG (27.0-34.0); MONO % 12.1 % (0.0-8.0); NEUT % 65.6 % (16.0-70.0); PLATELET COUNT 223 TH/MM3 (150-450); RED BLOOD COUNT 5.13 MIL/MM3 (4.50-5.90); RED CELL DISTRIBUTION WIDTH 13.1 % (11.6-17.2); WHITE BLOOD COUNT 9.3 TH/MM3 (4.0-11.0)
[2017-04-28 11:12] LABS: ANION GAP 9 MEQ/L (5-15); AST (GOT) 89 U/L (15-37); BICARBONATE 27.5 MEQ/L (21.0-32.0); BLOOD UREA NITROGEN 12 MG/DL (7-18); CHLORIDE 102 MEQ/L (98-107); GLOMERULAR FILTRATION RATE 109 ML/MIN (>89); SODIUM (NA) 138 MEQ/L (136-145)
[2017-04-28 11:16] LABS: ALKALINE PHOSPHATASE 122 U/L (45-117); ALT (GPT) 219 U/L (12-78); TOTAL BILIRUBIN ADULT 5.7 MG/DL (0.2-1.0)
[2017-04-28] MEDS ORDERED: LABETALOL HCL 100 MG/20 ML VIAL IV ONE (12:00)
[2017-04-28] MEDS ORDERED: ROCURONIUM INJ 50 MG/5 ML SYRINGE IV PUSH ONE (12:00)
[2017-04-28] MEDS ORDERED: MIDAZOLAM HCL 2 MG/2 ML VIAL IV ONE (12:00)
[2017-04-28] MEDS ORDERED: PROPOFOL 200 MG/20 ML AMP IV ONE (12:00)
[2017-04-28] MEDS ORDERED: GLYCOPYRROLATE 1 MG/5 ML SYRINGE IV PUSH ONE (12:00)
[2017-04-28] MEDS ORDERED: KETOROLAC TROMETHAMINE 30 MG/ML (IVP) VIAL IV PUSH ONE (12:00)
[2017-04-28] MEDS ORDERED: STERILE WATER FOR INJECTION 20 ML VIAL ONE (12:00)
[2017-04-28] MEDS ORDERED: DEXAMETHASONE SOD PHOS 4 MG/ML VIAL IV ONE (12:00)
[2017-04-28] MEDS ORDERED: METOPROLOL TARTRATE 5 MG/5 ML VIAL IV PUSH ONE (12:00)
[2017-04-28] MEDS ORDERED: LIDOCAINE HCL 1% PF 5 ML AMPULE OTHER ONE (12:00)
[2017-04-28] MEDS ORDERED: NEOSTIGMINE 3 MG/3 ML SYR IV ONE (12:00)
[2017-04-28] MEDS ORDERED: MORPHINE SULFATE 4 MG/ML INJ IV ONE (12:00)
[2017-04-28] MEDS ORDERED: ONDANSETRON HCL 4 MG/2 ML VIAL IV PUSH ONE (12:00)
[2017-04-28] MEDS ORDERED: VECURONIUM BROMIDE 20 MG VIAL IV ONE (12:00)
[2017-04-28] MEDS ORDERED: LACTATED RINGER'S 1000 ML INJ 1,000 ML IV ONE (12:00)
[2017-04-28] MEDS ORDERED: POVIDONE IODINE 5% (ANTISEPSIS KIT) 4 APPLICATIONS EACH NARE PRN (13:00)
[2017-04-28] MEDS ORDERED: INSULIN HUMAN REGULAR 1,000 UNITS/10 ML VIAL SQ PRN (13:00)
[2017-04-28] MEDS ORDERED: SODIUM CHLORID 0.9% 500 ML IV PRN (13:00)
[2017-04-28] MEDS ORDERED: LACTATED RINGER'S 1000 ML IV PRN (13:00)
[2017-04-28] MEDS ORDERED: METOPROLOL TARTRATE 25 MG TAB PO PRN (13:00)
[2017-04-28] MEDS ORDERED: CHLORHEXIDINE GLUCONATE 2 % 1 PACK (2 CLOTHS) TOPICAL PRN (13:00)
--- NOTE | 2017-04-28 13:45 | HHI.PR ---
Subjective Remarks Follow-up for biliary obstruction. Patient was seen in the morning. Patient is currently doing well. Waiting for ERCP this morning. Denies any chest pain , shortness of breath, fever or chills. Objective Vitals Vital Signs Date Time Temp Pulse Resp B/P (MAP) Pulse Ox O2 Delivery O2 Flow Rate FiO2 04/28/17 08:00 98.6 81 18 150/84 (106) 98 04/28/17 04:00 98.3 79 20 133/74 (93) 98 04/28/17 00:00 98.9 84 20 125/66 (85) 98 04/27/17 20:00 98.1 87 20 116/68 (84) 97 04/27/17 16:00 98.4 79 20 130/58 (82) 97 04/27/17 14:09 04/27/17 13:56 83 16 152/72 (98) 98 Room Air 04/27/17 13:52 16 I/O 04/27/17 04/27/17 04/27/17 04/28/17 04/28/17 04/28/17 07:00 15:00 23:00 07:00 15:00 23:00 Intake Total 1900 ml 100 ml 1000 ml Balance 1900 ml 100 ml 1000 ml Intake IV Total 1900 ml 100 ml 1000 ml # Voids 3 1 # Bowel Movements 0 0 Result Diagram: 04/28/1747 04/28/17846 Imaging Last Impressions Chest X-Ray 04/27/17932 Signed Impressions: Service Date/Time: Thursday, April 27, 2017 09:56 - CONCLUSION: No acute disease. Salvador Dickerson Jr., MD Aorta CTA 04/27/17932 Signed Impressions: Service Date/Time: Thursday, April 27, 2017 10:44 - CONCLUSION: 1. No aortic dissection or aneurysm. 2. Mild coronary artery atherosclerotic calcifications. 3. Hepatic steatosis. 4. Cholelithiasis. Salvador Dickerson Jr., MD Gall Bladder Ultrasound 04/27/17 0000 Signed Impressions: Service Date/Time: Thursday, April 27, 2017 11:08 - CONCLUSION: 1. Gallstones in the gallbladder. 2. Upper limits of normal or mildly prominent common bile duct 7 mm. No dilated biliary ducts. Recommend correlation with liver laboratory values. 3. Diffusely enlarged fatty liver. Jono Zaldivar MD Cholangiopancreatography MRI 04/27/17 0000 Signed Impressions: Service Date/Time: Thursday, April 27, 2017 18:25 - CONCLUSION: 1. Fatty liver. 2. Questionable filling defect probably artifactual involving distal common bile duct and the common bile duct itself is not particularly dilated. Temi Gomes MD Objective Remarks GENERAL: Alert, oriented 3, NAD. SKIN: Warm and dry. HEAD: Normocephalic. EYES: No scleral icterus. No injection or drainage. NECK: Supple, trachea midline. No JVD or lymphadenopathy. CARDIOVASCULAR: Regular rate and rhythm without murmurs, gallops, or rubs. RESPIRATORY: Breath sounds equal bilaterally. No accessory muscle use. GASTROINTESTINAL: Abdomen soft, non-tender, nondistended. MUSCULOSKELETAL: No cyanosis, or edema. BACK: Nontender without obvious deformity. No CVA tenderness. A/P Problem List: (1) Choledocholithiasis with obstruction ICD Code: K80.51 - Calculus of bile duct without cholangitis or cholecystitis with obstruction (2) HTN (hypertension) ICD Code: I10 - Essential (primary) hypertension Assessment and Plan 62-year-old male with a past medical history significant for hypertension, dyslipidemia and chronic back pain who presented to [facility] ED with complaints of abdominal pain for the past 3 days following meals found to have hyperbilirubinemia and cholelithiasis. Epigastric abdominal pain with hyperbilirubinemia, transaminitis and cholelithiasis Choledocholithiasis - Suspect secondary to biliary obstruction - Gallbladder ultrasound personally reviewed showing gallstones in the gallbladder and mildly prominent common bile duct and diffusely enlarged fatty liver. - Consult GI. MRCP ordered. Depending on the finding of MRCP, Patient will likely need ERCP - Dr. Anderson consulted by ED physician, appreciate his recommendations - Currently NPO. - IV Unasyn 3 g every 6h, IV fluid. - Pain management as needed - Monitor LFTs Hypertension - BP is 150/84 this morning. - Hold patient's home dose of atenolol 100 mg for now. If necessary, we will consider Amlodipine. Hypokalemia - K+ 3.3 --> 3.0 - Will replace with IV and PO KCL. Full code. SCDs. Discharge plan: After ERCP, if patient tolerates diet well, we will consider discharging him home in the AM. Armand Page DO Apr 28, 2017 1:45 pm
[2017-04-28] MEDS ORDERED: ACETAMINOPHEN 1000 MG/100 ML 100 ML IV ONE (13:56)
--- NOTE | 2017-04-28 14:23 | EKG ---
Date Performed: 04/27/2017 Time Performed: 12:05:39 PTAGE: 62 years EKG: Sinus rhythm NONSPECIFIC ST & T-WAVE ABNORMALITY BORDERLINE ECG PREVIOUS TRACING : 04/27/2017 09.17 DOCTOR: Reji Santo Interpretating Date/Time 04/28/2017 14:18:19
--- NOTE | 2017-04-28 14:28 | EKG ---
Date Performed: 04/27/2017 Time Performed: 09:17:23 PTAGE: 62 years EKG: SINUS BRADYCARDIA NONSPECIFIC T-WAVE ABNORMALITY BORDERLINE ECG NO PREVIOUS TRACING DOCTOR: Reji Santo Interpretating Date/Time 04/28/2017 14:21:06
[2017-04-28] MEDS ORDERED: AMPICILLIN-SULBACTAM INJ 3 GM VIAL ONE (14:36)
[2017-04-28] MEDS ORDERED: SODIUM CHLORIDE 0.9% INJ 100 ML ONE (14:37)
[2017-04-28] MEDS ORDERED: IOHEXOL 350 MG/ML 50 ML BTL (for RAD DIAG) OTHER ONE (14:54)
--- NOTE | 2017-04-28 15:16 | PD.PROCEDR ---
GI Procedure REFERRING PHYSICIAN ROSALINDA PROCEDURE PERFORMED ERCP with sphincterotomy and balloon extraction INDICATION FOR PROCEDURE Jaundice, choledocholithiasis PROCEDURE: The procedure, risks and benefits were discussed with Mr. Gomez and informed consent was obtained. Anesthesia sedated him with Diprivan. He was placed in the left lateral decubitus position. ERCP: Patient was placed in a prone position. The Pentax videoscope was introduced through the oropharynx and advanced to the second portion of the duodenum where the ampula was identified. FINDINGS: The ampulla appeared to be unremarkable we were able to obtain easy cannulation of common bile duct was of normal caliber and there was suspect filling defect in the distal portion the intrahepatics appeared to be unremarkable the gallbladder contained stones a sphincterotomy and then using the 8 mm balloon we were able to extract some debris from the common bile duct following this extraction the common bile duct appeared to be free of any filling defects and the procedure was terminated ESTIMATED BLOOD LOSS: None SPECIMENS REMOVED: None COMPLICATIONS: None IMPRESSION: Choledocholithiasis PLAN: Supportive care Laparoscopic cholecystectomy Monitor labs Eleno Ray MD Apr 28, 2017 15:16
[2017-04-28] MEDS ORDERED: *morphine SULFATE 8 MG/ML PERIprocedure ONLY ONE ×2 (16:50→17:06)
[2017-04-28] MEDS ORDERED: DO NOT ADM ANY ANTICOAGULANT DRUGS PRN (17:15)
[2017-04-28] MEDS ORDERED: oxyCODONE/ACETAMINOPHEN 5 MG/325 MG TAB PO PRN (17:15)
[2017-04-28] MEDS: POTASSIUM CHLOR 20 MEQ PREMIX 100 ML IV SCH ×2 (17:55→20:00)
--- NOTE | 2017-04-28 17:56 | RADRPT ---
EXAM DATE/TIME: 04/28/2017 14:53 [place] COMPARISON: No previous studies available for comparison. INDICATIONS : Obstruction. FLUORO TIME: 2.32 minutes IMAGE COUNT: 4 CONTRAST: Instilled by Ordering Physician MEDICAL HISTORY : Unobtainable SURGICAL HISTORY : Unobtainable. ENCOUNTER: Initial ACUITY: 1 day PAIN SCORE: Non-responsive. LOCATION: Abdomen, FINDINGS: An ERCP was performed by the ordering physician. The images demonstrate 4 images taken at the time of ERCP. These images show contrast opacifying the extrahepatic biliary system. The intrahepatic biliary system is opacified with only partially visuali zed. No filling defects appreciated. Cystic duct is opacified as well as the gallbladder. 2 filling d efects are seen involving the gallbladder felt to relate to stones. No dilatation. CONCLUSION: Cholelithiasis. No choledocholithiasis observed. Salvador Dickerson Jr., MD on April 28, 2017 at 17:53 Board Certified Radiologist. This report was verified electronically.
[2017-04-28] MEDS ORDERED: oxyCODONE/ACETAMINOPHEN 7.5 MG/325 MG TAB PO PRN (18:15)
[2017-04-28] MEDS ORDERED: TEMAZEPAM 15 MG CAP PO PRN (18:15)
[2017-04-28] MEDS: HYDROmorphone HCL PF 1 MG/ML VIAL IV PUSH PRN (18:53)
[2017-04-28] MEDS: HYDROmorphone HCL PF 0.5 MG/0.5 ML SYRINGE IV PUSH PRN (19:04)
[2017-04-28 20:25] VITALS: BP 162/72; PULSE 95; RESP 17; TEMP 97.3; O2SAT 96
--- NOTE | 2017-04-28 21:55 | MP ---
cc: ANA TEMPLETON MD DATE OF SURGERY: 04/28/2017 PREOPERATIVE DIAGNOSIS: Acute calculous cholecystitis, hyperbilirubinemia. POSTOPERATIVE DIAGNOSIS: Acute calculous cholecystitis, hyperbilirubinemia. PROCEDURE: Laparoscopic cholecystectomy SURGEON Dr. Templeton ANESTHESIA General. ESTIMATED BLOOD LOSS: 30 cc. DESCRIPTION OF PROCEDURE: The patient prepped and draped in the usual fashion, after he underwent ERCP about an hour ago which was essentially negative. Right supraumbilical incisions made, deepened down to the level of the fascia which was opened sharply with 15 blade and the abdomen was entered. Under direct vision the Jagruti cannula was placed, and the abdomen was insufflated with CO2. The patient was positioned in reverse Trendelenburg position with a tilt. The subxiphoid and right upper quadrant ports were placed. Abdomen visualized in quadrants with 0 degree camera. The patient has indeed a fairly large liver which is nodular with some irregular surface. Gallbladder appears to be quite inflamed and stuck to the omentum with surrounding structures, very red and angry looking. The rest of the abdominal exam is essentially negative. The patient has a large amount of fat in the abdominal cavity. The gallbladder is now grasped with alligator clamps and elevated. The cystic duct and cystic artery carefully dissected with [place] dissector by elevating the gallbladder first off the liver plate, hereby identifying the structures easily. The cystic duct and cystic artery clipped with triple Liga clips, divided and the gallbladder taken out of the liver bed with a J-hook and delivered through the subumbilical incision using EndoCatch bag. The area now irrigated with copious amounts of saline and because of inflammatory response, a 7 flat RON is placed in the subhepatic space. Instruments are now withdrawn and then the ports under direct vision. The abdomen is closed with #1 Vicryl and skin closed with 4-0 Monocryl subcuticular stitch. Dressing applied. The patient tolerated the procedure well. Ana MCFARLANE/KERRI /5:05 PM /9:46 PM
[2017-04-29 00:09] VITALS: BP 108/58; PULSE 106; RESP 17; TEMP 97.5; O2SAT 96
[2017-04-29] MEDS: AMPICILLIN/SULBAC 3 GM/NS 100 ML IV SCH ×4 (02:11→09:02)
[2017-04-29] MEDS: HYDROmorphone HCL PF 0.5 MG/0.5 ML SYRINGE IV PUSH PRN (02:23)
[2017-04-29] MEDS: SODIUM CHLOR 0.9% 1000 ML INJ 1,000 ML IV SCH (03:35)
[2017-04-29 04:30] VITALS: BP 110/58; PULSE 93; RESP 17; TEMP 98; O2SAT 96
[2017-04-29] MEDS: SODIUM CHLORIDE 0.9% FLUSH 10 ML FLUSH IV FLUSH SCH (09:00)
[2017-04-29] MEDS: DOCUSATE SODIUM 50 MG/SENNA 8.6 MG TAB PO SCH (09:00)
[2017-04-29 09:01] LABS: AUTOMATED NEUTROPHIL # 11.4 TH/MM3 (1.8-7.7); BASOPHIL % 0.1 % (0.0-2.0); EOSINOPHIL % 0.1 % (0.0-4.0); HEMO FLAGS DIFF FINAL; LYMPH % 10.4 % (9.0-44.0); LYMPHOCYTE # 1.5 TH/MM3 (1.0-4.8); MEAN CELL VOLUME 89.9 FL (80.0-100.0); MEAN CORPUSCULAR HEMOGLOBIN 30.2 PG (27.0-34.0); MEAN CORPUSCULAR HGB CONC 33.6 % (32.0-36.0); MONO % 11.9 % (0.0-8.0); NEUT % 77.5 % (16.0-70.0); PLATELET COUNT 210 TH/MM3 (150-450); RED BLOOD COUNT 4.44 MIL/MM3 (4.50-5.90); RED CELL DISTRIBUTION WIDTH 13.3 % (11.6-17.2); WHITE BLOOD COUNT 14.7 TH/MM3 (4.0-11.0)
[2017-04-29] MEDS: POTASSIUM CHLORIDE 20 MEQ CONTROLLED RELEASE TAB PO SCH (09:01)
[2017-04-29 09:18] LABS: ANION GAP 8 MEQ/L (5-15)
[2017-04-29 09:27] LABS: ALKALINE PHOSPHATASE 108 U/L (45-117); ALT (GPT) 174 U/L (12-78); AST (GOT) 70 U/L (15-37); BICARBONATE 27.1 MEQ/L (21.0-32.0); BLOOD UREA NITROGEN 15 MG/DL (7-18); CHLORIDE 103 MEQ/L (98-107); GLOMERULAR FILTRATION RATE 99 ML/MIN (>89); POTASSIUM 3.5 MEQ/L (3.5-5.1); SODIUM (NA) 138 MEQ/L (136-145); TOTAL BILIRUBIN ADULT 2.4 MG/DL (0.2-1.0)
[2017-04-29 10:13] VITALS: BP 134/68; PULSE 83; RESP 20; TEMP 98.9; O2SAT 98
--- NOTE | 2017-04-29 10:19 | HHI.GIFU ---
Subjective Remarks Resting in bed. No n/v. Pain controlled. + Flatus. Reports he tolerated a strawberry milkshake last night- has not had anything to eat. (Yadira Armstrong) Objective Vitals I&O Vital Signs Date Time Temp Pulse Resp B/P (MAP) Pulse Ox O2 Delivery O2 Flow Rate FiO2 04/29/17 04:30 98.0 93 17 110/58 (75) 96 04/29/17 00:09 97.5 106 17 108/58 (75) 96 04/28/17 20:25 97.3 95 17 162/72 (102) 96 04/28/17 17:32 98.4 83 16 152/82 (105) 99 Nasal Cannula 2 04/28/17 17:15 80 17 153/78 (103) 100 Nasal Cannula 2 04/28/17 17:00 78 15 145/73 (97) 100 Nasal Cannula 2 04/28/17 16:45 83 15 156/91 (112) 100 Nasal Cannula 2 04/28/17 16:36 98.1 88 14 151/91 (111) 100 Nasal Cannula 2 I/O 04/28/17 04/28/17 04/28/17 04/29/17 04/29/17 04/29/17 06:59 14:59 22:59 06:59 14:59 22:59 Intake Total 1000 ml 1440 ml 240 ml 1000 ml Output Total 470 ml 310 ml 100 ml Balance 1000 ml 970 ml -70 ml 900 ml Intake Oral 240 ml 240 ml IV Total 1000 ml 100 ml 1000 ml Other 1100 ml Output Urine Total 300 ml 290 ml 100 ml Drainage Total 120 ml 20 ml Estimated Blood Loss 50 ml # Voids 1 1 # Bowel Movements 0 Laboratory Laboratory Tests Test 04/29/17 07:41 White Blood Count 14.7 Red Blood Count 4.44 Hemoglobin 13.4 Hematocrit 40.0 Mean Corpuscular Volume 89.9 Mean Corpuscular Hemoglobin 30.2 Mean Corpuscular Hemoglobin Concent 33.6 Red Cell Distribution Width 13.3 Platelet Count 210 Mean Platelet Volume 8.3 Neutrophils (%) (Auto) 77.5 Lymphocytes (%) (Auto) 10.4 Monocytes (%) (Auto) 11.9 Eosinophils (%) (Auto) 0.1 Basophils (%) (Auto) 0.1 Neutrophils # (Auto) 11.4 Lymphocytes # (Auto) 1.5 Monocytes # (Auto) 1.7 Eosinophils # (Auto) 0.0 Basophils # (Auto) 0.0 CBC Comment DIFF FINAL Differential Comment Blood Urea Nitrogen 15 Creatinine 0.79 Random Glucose 112 Total Protein 6.3 Albumin 2.9 Calcium Level 8.0 Alkaline Phosphatase 108 Aspartate Amino Transf (AST/SGOT) 70 Alanine Aminotransferase (ALT/SGPT) 174 Total Bilirubin 2.4 Sodium Level 138 Potassium Level 3.5 Chloride Level 103 Carbon Dioxide Level 27.1 Anion Gap 8 Estimat Glomerular Filtration Rate 99 Lipase 3195 Date/Time Source Procedure Growth Status 04/27/17 21:35 Blood Peripheral Aerobic Blood Culture - Preliminary NO GROWTH IN 1 DAY Resulted 04/27/17 21:35 Blood Peripheral Anaerobic Blood Culture - Preliminary NO GROWTH IN 1 DAY Resulted Imaging Last Impressions GI Procedure 04/28/17 0000 Signed Impressions: Service Date/Time: Friday, April 28, 2017 14:53 - CONCLUSION: Cholelithiasis. No choledocholithiasis observed. Salvador Dickerson Jr., MD Chest X-Ray 04/27/17932 Signed Impressions: Service Date/Time: Thursday, April 27, 2017 09:56 - CONCLUSION: No acute disease. Salvador Dickerson Jr., MD Aorta CTA 04/27/17932 Signed Impressions: Service Date/Time: Thursday, April 27, 2017 10:44 - CONCLUSION: 1. No aortic dissection or aneurysm. 2. Mild coronary artery atherosclerotic calcifications. 3. Hepatic steatosis. 4. Cholelithiasis. Salvador Dickerson Jr., MD Gall Bladder Ultrasound 04/27/17 0000 Signed Impressions: Service Date/Time: Thursday, April 27, 2017 11:08 - CONCLUSION: 1. Gallstones in the gallbladder. 2. Upper limits of normal or mildly prominent common bile duct 7 mm. No dilated biliary ducts. Recommend correlation with liver laboratory values. 3. Diffusely enlarged fatty liver. Jono Zaldivar MD Cholangiopancreatography MRI 04/27/17 0000 Signed Impressions: Service Date/Time: Thursday, April 27, 2017 18:25 - CONCLUSION: 1. Fatty liver. 2. Questionable filling defect probably artifactual involving distal common bile duct and the common bile duct itself is not particularly dilated. Temi Gomes MD Physical Exam HEENT: Normocephalic; atraumatic; no jaundice. CHEST: CTA CARDIAC: RRR ABDOMEN: Soft,mildly bloated, mild tenderness, RUQ RON drain with small amount of drainage; no hepatosplenomegaly; bowel sounds are present in all four quadrants. EXTREMITIES: No clubbing, cyanosis, or edema. SKIN: Normal; no rash; no jaundice. DATA PROCESSOR: No focal deficits; alert and oriented times three. (Yadira Armstrong) Assessment and Plan Plan ASSESSMENT: - Choledocholithiasis/Biliary obstruction. GB US (04/27/17)---> Gallstones in the gallbladder. Upper limits of normal or mildly prominent common bile duct 7 mm. No dilated ducts. Recommend correlation with liver laboratory values, diffusely enlarged fatty liver. MRCP (04/27/17)----> Fatty liver. Questionable filling defect artifactual involving distal common bile duct and the common bile duct itself is not particularly dilated. S/P ERCP with sphincterotomy and balloon extraction (04/28/17)---> Choledocholithiasis. S/P Lap. Cholecystectomy (04/28/17). LFTs are improving. T. Bili 2.4, AST 70, ALT 174, ALK Phosph 108. WBC did go up to 14.7, but afebrile. Clinically doing well, no n/v. Pain controlled. Clear liquid diet, but tolerated strawberry milkshake that his brought in. Will advance diet. - Elevated LFTs secondary to above. Improving after ERCP. - Cholelithiasis. S/P Lap. Glenny. POD#1. Per GS - Leukocytosis. Unasyn. PLAN - Low fat diet - Unasyn - If stays overnight, recheck LFT, CBC in am - If patient tolerates diet and okay with GS, okay to d/c home from GI standpoint with LFT in one week and outpatient fu - LFT one week - FU BOZENA 2 weeks - Supportive care - Further recommendations to follow based on results of above - Pt seen and examined by Dr. Ray and myself and this note is written on his behalf (Yadira Armstrong) Physician Comments Patient seen and examined Agree with above Continue with current supportive care Monitor labs (Eleno Ray MD) Yadira Armstrong Apr 29, 2017 10:19 Eleno Ray MD Apr 29, 2017 20:53
[2017-04-29] MEDS: HYDROmorphone HCL PF 1 MG/ML VIAL IV PUSH PRN (10:35)
[2017-04-29] MEDS ORDERED: TRAM50TA PO ×2 (11:22→12:15)
--- NOTE | 2017-04-29 11:25 | PD.CAR.PN ---
CVT Progress Note Subjective/Hospital Course: Patient with the abdominal pain with cholelithiasis and hyperbilirubinemia Likely passing a stone but clearly spectral differential diagnosis in this area is present Referral received Full consult to follow Ana Mckeon 04/29/17 Abdomen soft, active BS PO diet OK. Incisions clean dry LFTs on way down Lipase 3200 and not unexpected in face of ERCP Should be monitored carefully based on clinical progress and lab values. May DC today with FU Objective: Vital Signs Date Time Temp Pulse Resp B/P (MAP) Pulse Ox O2 Delivery O2 Flow Rate FiO2 04/29/17 10:13 98.9 83 20 134/68 (90) 98 04/29/17 04:30 98.0 93 17 110/58 (75) 96 04/29/17 00:09 97.5 106 17 108/58 (75) 96 04/28/17 20:25 97.3 95 17 162/72 (102) 96 04/28/17 17:32 98.4 83 16 152/82 (105) 99 Nasal Cannula 2 04/28/17 17:15 80 17 153/78 (103) 100 Nasal Cannula 2 04/28/17 17:00 78 15 145/73 (97) 100 Nasal Cannula 2 04/28/17 16:45 83 15 156/91 (112) 100 Nasal Cannula 2 04/28/17 16:36 98.1 88 14 151/91 (111) 100 Nasal Cannula 2 Labs: Laboratory Tests Test 04/29/17 07:41 White Blood Count 14.7 TH/MM3 (4.0-11.0) Red Blood Count 4.44 MIL/MM3 (4.50-5.90) Hemoglobin 13.4 GM/DL (13.0-17.0) Hematocrit 40.0 % (39.0-51.0) Mean Corpuscular Volume 89.9 FL (80.0-100.0) Mean Corpuscular Hemoglobin 30.2 PG (27.0-34.0) Mean Corpuscular Hemoglobin Concent 33.6 % (32.0-36.0) Red Cell Distribution Width 13.3 % (11.6-17.2) Platelet Count 210 TH/MM3 (150-450) Mean Platelet Volume 8.3 FL (7.0-11.0) Neutrophils (%) (Auto) 77.5 % (16.0-70.0) Lymphocytes (%) (Auto) 10.4 % (9.0-44.0) Monocytes (%) (Auto) 11.9 % (0.0-8.0) Eosinophils (%) (Auto) 0.1 % (0.0-4.0) Basophils (%) (Auto) 0.1 % (0.0-2.0) Neutrophils # (Auto) 11.4 TH/MM3 (1.8-7.7) Lymphocytes # (Auto) 1.5 TH/MM3 (1.0-4.8) Monocytes # (Auto) 1.7 TH/MM3 (0-0.9) Eosinophils # (Auto) 0.0 TH/MM3 (0-0.4) Basophils # (Auto) 0.0 TH/MM3 (0-0.2) CBC Comment DIFF FINAL Differential Comment Blood Urea Nitrogen 15 MG/DL (7-18) Creatinine 0.79 MG/DL (0.60-1.30) Random Glucose 112 MG/DL (74-106) Total Protein 6.3 GM/DL (6.4-8.2) Albumin 2.9 GM/DL (3.4-5.0) Calcium Level 8.0 MG/DL (8.5-10.1) Alkaline Phosphatase 108 U/L (45-117) Aspartate Amino Transf (AST/SGOT) 70 U/L (15-37) Alanine Aminotransferase (ALT/SGPT) 174 U/L (12-78) Total Bilirubin 2.4 MG/DL (0.2-1.0) Sodium Level 138 MEQ/L (136-145) Potassium Level 3.5 MEQ/L (3.5-5.1) Chloride Level 103 MEQ/L (98-107) Carbon Dioxide Level 27.1 MEQ/L (21.0-32.0) Anion Gap 8 MEQ/L (5-15) Estimat Glomerular Filtration Rate 99 ML/MIN (>89) Lipase 3195 U/L (73-393) Result Diagram: 04/29/17 0741 04/29/17 0741 Binu Anderson MD Apr 29, 2017 11:25
[2017-04-29 12:11] VITALS: BP 111/54; PULSE 90; RESP 20; TEMP 98.9; O2SAT 94
[2017-04-29] MEDS ORDERED: ATEN25TA PO (12:13)
--- NOTE | 2017-04-29 17:56 | HHI.DS ---
Discharge Summary Admission Date Apr 27, 2017 at 12:09 Discharge Date: Apr 29, 2017 Admitting Diagnosis Biliary Duct obstruction (1) Choledocholithiasis with obstruction ICD Code: K80.51 - Calculus of bile duct without cholangitis or cholecystitis with obstruction (2) HTN (hypertension) ICD Code: I10 - Essential (primary) hypertension Procedures ERCP, MRCP, Cholecystectomy Brief History - From Admission Written by Katja Hernandez, acting as scribe for Dr. Page on 04/27/17 at 15: 13. This note was transcribed by scribe Katja Hernandez PA-C. I, Dr. Shayne Page personally performed the history, physical exam, and medical decision making; and confirmed the accuracy of the information in the transcribed note. Authenticated by Dr. Shayne Page on 04/27/17 at 15:15. This is a 62-year-old male with a past medical history significant for hypertension, dyslipidemia and chronic back pain who presented to [facility] ED with complaints of abdominal pain for the past 3 days. Patient states that on Wednesday after eating spaghetti and meatballs he stood up took a deep breath and felt a "burning snap" rib cage. Patient states that the course of the evening the abdominal pain moved down to his abdomen and then dissipated on its own around 1:00 on Wednesday. He reports having similar but more severe symptoms following breakfast on Wednesday morning and then after eating dinner on Wednesday night both times resolving on its own after several hours. Wednesday he did not eat anything at all for a few any abdominal pain return. Patient reports that this morning he had a cup of coffee after he developed the abdominal pain again and decided to come into the ED for further evaluation. Patient states that he's had some intermittent fever and chills following meals for the past few days. He also reports 1 episode of emesis early on Wednesday morning which may have had some blood in it but he attributed the redness to spaghetti he'd eaten the night before. He denies any chest pain or radiation of the epigastric pain to his back. Patient denies any complaints of diarrhea or constipation. He denies any blood in stool. He denies any previous EGD or colonoscopy. At present, patient denies any complaints of abdominal pain and reports feeling well at this time. In the ED, CT of the aorta was unremarkable. Troponins less than 0.022. BNP 13. Patient was found to have hyperbilirubinemia. Gallbladder ultrasound was obtained showing gallstones in the gallbladder and a mildly prominent common bile duct. CBC/BMP: 04/29/17 0741 04/29/17 0741 Significant Findings Laboratory Tests Test 04/27/17 09:00 04/27/17 11:58 04/28/17 08:47 04/29/17 07:41 White Blood Count 11.8 TH/MM3 (4.0-11.0) 14.7 TH/MM3 (4.0-11.0) Monocytes (%) (Auto) 12.4 % (0.0-8.0) 12.1 % (0.0-8.0) 11.9 % (0.0-8.0) Eosinophils (%) (Auto) 6.5 % (0.0-4.0) Monocytes # (Auto) 1.5 TH/MM3 (0-0.9) 1.1 TH/MM3 (0-0.9) 1.7 TH/MM3 (0-0.9) Eosinophils # (Auto) 0.8 TH/MM3 (0-0.4) Random Glucose 112 MG/DL (74-106) 66 MG/DL (74-106) 112 MG/DL (74-106) Alkaline Phosphatase 139 U/L (45-117) 122 U/L (45-117) Aspartate Amino Transf (AST/SGOT) 153 U/L (15-37) 89 U/L (15-37) 70 U/L (15-37) Alanine Aminotransferase (ALT/SGPT) 315 U/L (12-78) 219 U/L (12-78) 174 U/L (12-78) Total Bilirubin 4.4 MG/DL (0.2-1.0) 5.7 MG/DL (0.2-1.0) 2.4 MG/DL (0.2-1.0) Potassium Level 3.3 MEQ/L (3.5-5.1) 3.0 MEQ/L (3.5-5.1) Chloride Level 96 MEQ/L (98-107) Troponin I LESS THAN 0.02 NG/ML LESS THAN 0.02 NG/ML Lipase 442 U/L (73-393) 3195 U/L (73-393) Albumin 3.3 GM/DL (3.4-5.0) 2.9 GM/DL (3.4-5.0) Calcium Level 8.4 MG/DL (8.5-10.1) 8.0 MG/DL (8.5-10.1) Red Blood Count 4.44 MIL/MM3 (4.50-5.90) Neutrophils (%) (Auto) 77.5 % (16.0-70.0) Neutrophils # (Auto) 11.4 TH/MM3 (1.8-7.7) Total Protein 6.3 GM/DL (6.4-8.2) Imaging Last Impressions GI Procedure 04/28/17 Signed Impressions: Service Date/Time: Friday, April 28, 2017 14:53 - CONCLUSION: Cholelithiasis. No choledocholithiasis observed. Salvador Dickerson Jr., MD Chest X-Ray 04/27/17932 Signed Impressions: Service Date/Time: Thursday, April 27, 2017 09:56 - CONCLUSION: No acute disease. Salvador Dickerson Jr., MD Aorta CTA 04/27/1733 Signed Impressions: Service Date/Time: Thursday, April 27, 2017 10:44 - CONCLUSION: 1. No aortic dissection or aneurysm. 2. Mild coronary artery atherosclerotic calcifications. 3. Hepatic steatosis. 4. Cholelithiasis. Salvador Dickerson Jr., MD Gall Bladder Ultrasound 04/27/17 0000 Signed Impressions: Service Date/Time: Thursday, April 27, 2017 11:08 - CONCLUSION: 1. Gallstones in the gallbladder. 2. Upper limits of normal or mildly prominent common bile duct 7 mm. No dilated biliary ducts. Recommend correlation with liver laboratory values. 3. Diffusely enlarged fatty liver. Jono Zaldivar MD Cholangiopancreatography MRI 04/27/17 0000 Signed Impressions: Service Date/Time: Thursday, April 27, 2017 18:25 - CONCLUSION: 1. Fatty liver. 2. Questionable filling defect probably artifactual involving distal common bile duct and the common bile duct itself is not particularly dilated. Temi Gomes MD PE at Discharge GENERAL: Alert, oriented 3, NAD. SKIN: Warm and dry. HEAD: Normocephalic. EYES: No scleral icterus. No injection or drainage. NECK: Supple, trachea midline. No JVD or lymphadenopathy. CARDIOVASCULAR: Regular rate and rhythm without murmurs, gallops, or rubs. RESPIRATORY: Breath sounds equal bilaterally. No accessory muscle use. GASTROINTESTINAL: Abdomen soft, non-tender, nondistended. MUSCULOSKELETAL: No cyanosis, or edema. BACK: Nontender without obvious deformity. No CVA tenderness. Pt update on day of discharge Patient is doing well. No fever, chills. Tolerating diet well. Wants to go home. Discussed with Dr. Mckeon (surgeon) who recommended discharge as well. Hospital Course 62-year-old male with a past medical history significant for hypertension, dyslipidemia and chronic back pain who presented to [facility] ED with complaints of abdominal pain for the past 3 days following meals found to have hyperbilirubinemia and cholelithiasis. Epigastric abdominal pain with hyperbilirubinemia, transaminitis and cholelithiasis Choledocholithiasis - Suspect secondary to biliary obstruction - Gallbladder ultrasound personally reviewed showing gallstones in the gallbladder and mildly prominent common bile duct and diffusely enlarged fatty liver. - MRCP showed biliary filling defect. Patient underwent ERCP and then cholecystectomy. - Received IV Unasyn 3 g every 6h, IV fluid. - Pain management as needed Hypertension - BP is 150/84 - We felt that atenolol 100mg was too much. We will reduce it to Atenolol 25mg BID. - IF necessary, consider Amlodipine for blood pressure control in the outpatient setting. Hypokalemia - Improved to 3.5. After discharge, patient's called. Tramadol is not very effective for pain control. We will give her an Rx for Percocet tomorrow for her . Pt Condition on Discharge: Good Discharge Disposition: Discharge Home Discharge Time: > 30 minutes Discharge Instructions DIET: Follow Instructions for: Heart Healthy Diet Activities you can perform: Regular-No Restrictions Follow up Referrals: Gastroenterology - 2 Weeks @ [facility] - 2 Weeks with Binu Anderson MD New Medications: Atenolol (Atenolol) 25 Mg Tab 25 MG PO BID for Blood Pressure Management, #60 TAB 0 Refills Tramadol (Tramadol) 50 Mg Tab 50 MG PO Q4H PRN for PAIN, #20 TAB 0 Refills Continued Medications: Potassium Chloride ER (Potassium Chloride ER) 10 Meq Cap 10 MEQ PO DAILY for Electrolyte Replacement, CAP 0 Refills Tramadol (Tramadol) 50 Mg Tab 50 MG PO Q6H PRN for PAIN, TAB 0 Refills Discontinued Medications: Atenolol (Atenolol) 100 Mg Tab 100 MG PO HS for Blood Pressure Management, TAB 0 Refills Armand Page DO Apr 29, 2017 17:56
== END 2017-04-29 14:54 | disposition home or self-care (01) | DRG 419 ==
LOC: PHED 09:08 → PHEDA 12:07 → OBSVTOIN 12:09 → N05B 14:42
PROVIDERS: ADMIT Hospitalist; ATTEND Hospitalist
PROC: 0FT44ZZ Resection of Gallbladder, Percutaneous Endoscopic Approach (ICD-10-PCS; principal; 2017-04-28 14:19)
PROC: 0FC98ZZ Extirpation of Matter from Common Bile Duct, Via Natural or Artificial Opening Endoscopic (ICD-10-PCS; 2017-04-28 14:19)
DX: K80.63 Calculus of gallbladder and bile duct with acute cholecystitis with obstruction (principal); K76.0 Fatty (change of) liver, not elsewhere classified; I10 Essential (primary) hypertension; G89.29 Other chronic pain; E78.00 Pure hypercholesterolemia, unspecified; M54.9 Dorsalgia, unspecified; E87.6 Hypokalemia
CPT/HCPCS: 71010; 71275; 74174; 74181; 74330; 76377; 76705; 80053; 82550; 82552; 83690; 83735; 83880; 84484; 85025; 85610; 85730; 87040; 88304; 93005; J1170; C1769; J0131; J0295; J1100; J1885; J2250; J2270; J2405; J2710; J3010; J3480; J7030; J7120; Q9967

== ENCOUNTER 2017-04-29 20:49 | Inpatient (IN) | payer MEDICARE ==
[~2017-04-29] VITALS: Ht 170.2 cm; Wt 99.2 kg
[~2017-04-29 20:49] MED LIST changes: +ATEN25TA PO; -BETA0.054 TOPICAL; -MEDI220T PO
[2017-04-29 21:15] VITALS: BP 169/91; PULSE 67; RESP 16; TEMP 98.2; O2SAT 96
[2017-04-29] MEDS ORDERED: SODIUM CHLOR 0.9% 1000 ML INJ 1,000 ML IV SCH ×2 (22:03→23:30)
[2017-04-29 22:10] VITALS: RESP 18; O2SAT 97
[2017-04-29] MEDS ORDERED: SODIUM CHLORIDE 0.9% FLUSH 10 ML FLUSH IV FLUSH PRN ×2 (22:15→23:45)
[2017-04-29] MEDS ORDERED: HYDROmorphone HCL PF 2 MG/ML VIAL IVS ONE (22:15)
[2017-04-29] MEDS ORDERED: ONDANSETRON HCL 4 MG/2 ML VIAL IVP ONE (22:15)
[2017-04-29 22:28] LABS: BLOOD, URINE SMALL (NEG); GLUCOSE,URINE NEG (NEG); KETONE, URINE NEG (NEG); NITRITE,URINE NEG (NEG); PH, URINE 5.5 (5.0-8.5)
[2017-04-29 22:30] LABS: BASOPHIL # 0.1 TH/MM3 (0-0.2); EOSINOPHIL # 0.1 TH/MM3 (0-0.4); EOSINOPHIL % 0.5 % (0.0-4.0); HEMATOCRIT 44.8 % (39.0-51.0); LYMPH % 8.7 % (9.0-44.0); LYMPHOCYTE # 1.2 TH/MM3 (1.0-4.8); MEAN CELL VOLUME 89.9 FL (80.0-100.0); MEAN CORPUSCULAR HEMOGLOBIN 29.2 PG (27.0-34.0); MEAN CORPUSCULAR HGB CONC 32.5 % (32.0-36.0); MONO % 11.3 % (0.0-8.0); NEUT % 78.5 % (16.0-70.0); PLATELET COUNT 266 TH/MM3 (150-450); RED BLOOD COUNT 4.98 MIL/MM3 (4.50-5.90); RED CELL DISTRIBUTION WIDTH 13.3 % (11.6-17.2)
[2017-04-29 22:43] LABS: URINE COLOR YELLOW (YELLW/STRAW)
[2017-04-29 22:44] LABS: MUCUS URINE MOD /lpf (OCC); RBC, URINE 0-3 /hpf (0-3)
[2017-04-29 22:45] LABS: COMMENT (UR) CULTURE INDICATED; CULTURE IF INDICATED CULTURE INDICATED; SQUAMOUS EPITHELIAL CELL URINE 0-5 /hpf (0-5)
[2017-04-29 22:55] LABS: HEMO FLAGS DIFF FINAL
[2017-04-29 23:01] LABS: CHLORIDE 102 MEQ/L (98-107); POTASSIUM 3.6 MEQ/L (3.5-5.1); SODIUM (NA) 137 MEQ/L (136-145)
[2017-04-29 23:04] LABS: ANION GAP 7 MEQ/L (5-15); BLOOD UREA NITROGEN 14 MG/DL (7-18)
[2017-04-29 23:05] LABS: APTT (PATIENT) 28.5 SEC (24.3-30.1); PROTHROMBIN TIME - PATIENT 10.9 SEC (9.8-11.6)
[2017-04-29 23:07] LABS: ALT (GPT) 251 U/L (12-78); AST (GOT) 157 U/L (15-37); GLOMERULAR FILTRATION RATE 94 ML/MIN (>89)
[2017-04-29 23:14] VITALS: BP 145/80; PULSE 80; RESP 18; O2SAT 97
[2017-04-29 23:16] LABS: ALKALINE PHOSPHATASE 146 U/L (45-117)
--- NOTE | 2017-04-29 23:18 | PD ---
HPI Chief Complaint: Abdominal Pain Time Seen by Provider: 22:03 Travel History International Travel<30 days: No Contact w/Intl Traveler<30days: No Traveled to known affect area: No History of Present Illness HPI 62-year-old male who is status post ERCP and cholecystectomy on 04/28/17 for cholelithiasis with acute cholecystitis, discharged home today, here for evaluation of abdominal pain. The patient reports that he was discharged home at around 4:00 PM, however he did not receive a perception for pain medication. At time of discharge he felt well, however a few hours later he began to develop diffuse abdominal pain which she describes as cramping, 9 out of 10, constant. Pain is associated with nausea but no vomiting. He denies having fever. He is passing flatus. The patient's surgeon is Dr. Anderson who was contacted shortly after the patient arrived in the emergency department. Patient had a lipase of 3000 earlier this morning prior to being discharged home which is most likely secondary to his ERCP. Plan is to perform basic labs and to treat the patient's pain. PFSH Past Medical History Autoimmune Disease: No Cancer: No Cardiovascular Problems: No High Cholesterol: Yes Diabetes: No Diminished Hearing: No Endocrine: No Gastrointestinal Disorders: No Genitourinary: No Hypertension: Yes Immune Disorder: No Implanted Vascular Access Dvce: No Musculoskeletal: Yes Neurologic: Yes Psychiatric: No Reproductive: No Respiratory: No Tetanus Vaccination: Unknown Influenza Vaccination: No Past Surgical History Cholecystectomy: Yes Other Surgery: Yes Social History Alcohol Use: No Tobacco Use: No Substance Use: No Allergies-Medications (Allergen,Severity, Reaction): Coded Allergies: niacin (Unverified Allergy, Mild, Rash, 04/29/17) Reported Meds & Prescriptions Reported Meds & Active Scripts Active Atenolol 25 Mg Tab 25 Mg PO BID Reported Potassium Chloride ER (Potassium Chloride) 10 Meq Cap 10 Meq PO DAILY Tramadol (Tramadol HCl) 50 Mg Tab 50 Mg PO Q6H PRN Review of Systems Except as stated in HPI: all other systems reviewed are Neg Physical Exam Narrative GENERAL: Well-developed, well-nourished, overweight, moderate distress secondary to pain. SKIN: Focused skin assessment warm/dry. Diffuse jaundice. HEAD: Atraumatic. Normocephalic. EYES: Pupils equal and round. Scleral icterus. No injection or drainage. ENT: Mucous membranes pink and moist. NECK: Trachea midline. No JVD. CARDIOVASCULAR: Regular rate and rhythm. No murmur appreciated. RESPIRATORY: No accessory muscle use. Clear to auscultation. Breath sounds equal bilaterally. GASTROINTESTINAL: Abdomen soft, nondistended. Mild diffuse tenderness without peritoneal signs. Four tiny surgical incision over the patient's abdomen with upper scope procedure was performed with poppy in place without warmth or erythema, no purulence, wounds are clean, dry, and intact. MUSCULOSKELETAL: No obvious deformities. No clubbing. No cyanosis. No edema. NEUROLOGICAL: Awake and alert. No obvious cranial nerve deficits. Motor grossly within normal limits. Normal speech. PSYCHIATRIC: Appropriate mood and affect; insight and judgment normal. Data Data Last Documented VS Vital Signs Date Time Temp Pulse Resp B/P (MAP) Pulse Ox O2 Delivery O2 Flow Rate FiO2 04/29/17 23:14 80 18 145/80 (101) 97 Room Air 04/29/17 21:15 98.2 Orders Orders Complete Blood Count With Diff (04/29/17 22:03) Comprehensive Metabolic Panel (04/29/17 22:03) Lipase (04/29/17 22:03) Prothrombin Time / Inr (Pt) (04/29/17 22:03) Act Partial Throm Time (Ptt) (04/29/17 22:03) Urinalysis - C+S If Indicated (04/29/17 22:03) Iv Access Insert/Monitor (04/29/17 22:03) Ecg Monitoring (04/29/17 22:03) Oximetry (04/29/17 22:03) Hydromorphone Pf Inj (Dilaudid Pf Inj) (04/29/17 22:15) Ondansetron Inj (Zofran Inj) (04/29/17 22:15) Sodium Chlor 0.9% 1000 Ml Inj (Ns 1000 M (04/29/17 22:03) Sodium Chloride 0.9% Flush (Ns Flush) (04/29/17 22:15) Urine Culture (04/29/17 22:10) Sodium Chlor 0.9% 1000 Ml Inj (Ns 1000 M (04/29/17 23:30) Sodium Chlor 0.9% 1000 Ml Inj (Ns 1000 M (04/29/17 23:30) Labs Laboratory Tests Test 04/29/17 22:10 White Blood Count 14.0 TH/MM3 Red Blood Count 4.98 MIL/MM3 Hemoglobin 14.6 GM/DL Hematocrit 44.8 % Mean Corpuscular Volume 89.9 FL Mean Corpuscular Hemoglobin 29.2 PG Mean Corpuscular Hemoglobin Concent 32.5 % Red Cell Distribution Width 13.3 % Platelet Count 266 TH/MM3 Mean Platelet Volume 8.6 FL Neutrophils (%) (Auto) 78.5 % Lymphocytes (%) (Auto) 8.7 % Monocytes (%) (Auto) 11.3 % Eosinophils (%) (Auto) 0.5 % Basophils (%) (Auto) 1.0 % Neutrophils # (Auto) 11.0 TH/MM3 Lymphocytes # (Auto) 1.2 TH/MM3 Monocytes # (Auto) 1.6 TH/MM3 Eosinophils # (Auto) 0.1 TH/MM3 Basophils # (Auto) 0.1 TH/MM3 CBC Comment DIFF FINAL Differential Comment Prothrombin Time 10.9 SEC Prothromb Time International Ratio 1.0 RATIO Activated Partial Thromboplast Time 28.5 SEC Urine Color YELLOW Urine Turbidity CLEAR Urine pH 5.5 Urine Specific Edson 1.021 Urine Protein NEG mg/dL Urine Glucose (UA) NEG mg/dL Urine Ketones NEG mg/dL Urine Occult Blood SMALL Urine Nitrite NEG Urine Bilirubin MOD Urine Leukocyte Esterase NEG Urine RBC 0-3 /hpf Urine WBC 6-8 /hpf Urine WBC Clumps FEW Urine Squamous Epithelial Cells 0-5 /hpf Urine Mucus MOD /lpf Microscopic Urinalysis Comment CULTURE INDICATED Blood Urea Nitrogen 14 MG/DL Creatinine 0.83 MG/DL Random Glucose 140 MG/DL Total Protein 7.3 GM/DL Albumin 3.3 GM/DL Calcium Level 8.3 MG/DL Alkaline Phosphatase 146 U/L Aspartate Amino Transf (AST/SGOT) 157 U/L Alanine Aminotransferase (ALT/SGPT) 251 U/L Total Bilirubin 5.0 MG/DL Sodium Level 137 MEQ/L Potassium Level 3.6 MEQ/L Chloride Level 102 MEQ/L Carbon Dioxide Level 28.0 MEQ/L Anion Gap 7 MEQ/L Estimat Glomerular Filtration Rate 94 ML/MIN Lipase GREATER THAN 56883 U/L MDM Medical Decision Making Medical Screen Exam Complete: Yes Emergency Medical Condition: Yes Medical Record Reviewed: Yes Differential Diagnosis Postoperative pain, retained stone, cholangitis, pancreatitis Narrative Course Vital signs show heart rate 80, blood pressure 145/80, pulse ox 97% on room air , oral temp of 98.2F. CBC: WBC 14, hemoglobin 14.6, hematocrit 44.8, platelets 266, neutrophils 78.5%. CMP is remarkable for random glucose 140, T bili 5, AST 157, ALT 251, alkaline phosphatase 146. Lipase is greater than 30,000. UA: Small occult blood, moderate bilirubin, 6-8 WBCs, few wbc clumps, 0-5 squamous epithelial cells, moderate mucus, culture indicated. This appears to be contaminated sample, and will await cultures prior to initiating antibiotics. Case discussed with the patient's general surgeon Dr. Anderson. Symptoms are most likely secondary to ERCP and cholecystectomy. He does not believe that there is a retained stone, and does not believe any imaging is necessary at this time. Patient's pain well controlled after dose of IV Dilaudid. There are no peritoneal signs on exam. He is requesting medical admission for further management of acute pancreatitis with IV hydration and NPO. The patient was written for 2 L of normal saline IV by me, then started on normal saline at 125 cc per hour. Case discussed with hospitalist Dr. Zhang who will admit the patient to her service. Patient and the patient's significant other were made aware of all findings and plan for admission. Diagnosis Primary Impression: Idiopathic acute pancreatitis Qualified Codes: K85.00 - Idiopathic acute pancreatitis without necrosis or infection Admitting Information Admitting Physician Requests: it Henri Baird MD Apr 29, 2017 23:18
[2017-04-29] MEDS ORDERED: SODIUM CHLOR 0.9% 1000 ML INJ 1,000 ML IV ONE (23:30)
[2017-04-29] MEDS ORDERED: NALOXONE HCL 0.4 MG/ML AMP IV PUSH PRN (23:45)
[2017-04-30] VITALS (10 sets, daily range): BP systolic 122–197; BP diastolic 64–111; PULSE 65–85; RESP 18–21; TEMP 97.4–100; O2SAT 92–97
[2017-04-30] MEDS: HYDROmorphone HCL PF 1 MG/ML VIAL IV PUSH PRN ×6 (01:19→23:48)
[2017-04-30] MEDS ORDERED: HYDROmorphone HCL PF 1 MG/ML VIAL IV PUSH ONE (03:15)
[2017-04-30 05:46] LABS: CHLORIDE 103 MEQ/L (98-107); POTASSIUM 3.5 MEQ/L (3.5-5.1); SODIUM (NA) 139 MEQ/L (136-145)
[2017-04-30 05:53] LABS: ANION GAP 6 MEQ/L (5-15); AUTOMATED NEUTROPHIL # 10.3 TH/MM3 (1.8-7.7); BASOPHIL # 0.1 TH/MM3 (0-0.2); BASOPHIL % 0.5 % (0.0-2.0); BICARBONATE 29.7 MEQ/L (21.0-32.0); BLOOD UREA NITROGEN 10 MG/DL (7-18); EOSINOPHIL # 0.1 TH/MM3 (0-0.4); EOSINOPHIL % 0.5 % (0.0-4.0); HEMATOCRIT 43.9 % (39.0-51.0); LYMPH % 10.8 % (9.0-44.0); LYMPHOCYTE # 1.5 TH/MM3 (1.0-4.8); MEAN CELL VOLUME 90.3 FL (80.0-100.0); MEAN CORPUSCULAR HEMOGLOBIN 29.6 PG (27.0-34.0); MEAN CORPUSCULAR HGB CONC 32.8 % (32.0-36.0); MONO % 13.5 % (0.0-8.0); NEUT % 74.7 % (16.0-70.0); PLATELET COUNT 232 TH/MM3 (150-450); RED BLOOD COUNT 4.86 MIL/MM3 (4.50-5.90); RED CELL DISTRIBUTION WIDTH 13.3 % (11.6-17.2); WHITE BLOOD COUNT 13.9 TH/MM3 (4.0-11.0)
[2017-04-30 05:56] LABS: ALT (GPT) 250 U/L (12-78); AST (GOT) 155 U/L (15-37); GLOMERULAR FILTRATION RATE 120 ML/MIN (>89)
[2017-04-30 05:57] LABS: TOTAL BILIRUBIN ADULT 5.6 MG/DL (0.2-1.0)
[2017-04-30 05:59] LABS: ALKALINE PHOSPHATASE 148 U/L (45-117); HEMO FLAGS DIFF FINAL
[2017-04-30] MEDS ORDERED: SODIUM CHLORIDE 0.9% FLUSH 10 ML FLUSH IV FLUSH PRN (08:45)
[2017-04-30] MEDS ORDERED: LACTULOSE SYRUP 20 GM/30 ML CUP PO PRN (08:45)
[2017-04-30] MEDS ORDERED: BISACODYL 10 MG SUPP RECTAL PRN (08:45)
[2017-04-30] MEDS ORDERED: SENNOSIDES 8.6 MG TAB PO PRN (08:45)
[2017-04-30] MEDS ORDERED: MAGNESIUM HYDROXIDE SUSP 30 ML CUP PO PRN (08:45)
[2017-04-30] MEDS ORDERED: SODIUM CHLORIDE 0.9% FLUSH 10 ML FLUSH IV FLUSH SCH (09:00)
[2017-04-30] MEDS: DOCUSATE SODIUM 50 MG/SENNA 8.6 MG TAB PO SCH ×2 (09:55→20:16)
[2017-04-30] MEDS: SODIUM CHLOR 0.9% 1000 ML INJ 1,000 ML IV SCH ×2 (09:55→17:05)
[2017-04-30] MEDS: SODIUM CHLORIDE 0.9% FLUSH 10 ML FLUSH IV FLUSH SCH ×2 (09:55→20:16)
--- NOTE | 2017-04-30 11:26 | HHI.HP ---
cc: Kena Reyes MD HPI Service [facility] Primary Care Physician Kena Reyes MD Admission Diagnosis idiopathic acute pancreatitis Diagnoses: (1) Acute pancreatitis Diagnosis: Principal (2) Postoperative or surgical complication Diagnosis: Principal (3) HTN (hypertension) Diagnosis: Principal Chief Complaint: abdominal pain Travel History International Travel<30 Days: No Contact w/Intl Traveler <30 Da: No Traveled to Known Affected Are: No History of Present Illness Written by Kate Alejandre PA-C acting as scribe for Dr. Benson on 04/30/17 at 1126. 62-year-old male with history of hypertension and hyperlipidemia with a recent diagnosis of cholelithiasis and ERCP with subsequent cholecystectomy on 04/28/17 returns with abdominal pain. Patient was discharged from the hospital yesterday, went home for 3 hours, and then returned to ED last night. He states he was watching TV drinking ice water when he experienced pain describing it as "pressure" over the entire abdomen and also experienced lower back pain although does have chronic back pain. Currently receiving Dilaudid, but states pain worsens every 2 hours. He states abdominal pain is worse than back pain. He denies any nausea or vomiting. Admits to small bowel movement yesterday but denies any blood in his stool. Admits to generalized weakness from not eating. Denies chest pain. Denies dysuria. Review of Systems Except as stated in HPI: all other systems reviewed are Neg Past Family Social History Past Medical History HTN HLD chronic back pain cholelithiasis Past Surgical History ERCP and cholecystectomy 04/28/17 Reported Medications Reported Meds & Active Scripts Active Atenolol 25 Mg Tab 25 Mg PO BID Reported Potassium Chloride ER (Potassium Chloride) 10 Meq Cap 10 Meq PO DAILY Tramadol (Tramadol HCl) 50 Mg Tab 50 Mg PO Q6H PRN Allergies: Coded Allergies: niacin (Unverified Allergy, Mild, Rash, 04/29/17) Family History Mother: Alive, age 103 Father: HTN, coronary artery disease with AL age 67 Social History Patient denies any tobacco use. He denies any alcohol consumption. Denies any illicit drug use. Patient is and lives with his . Physical Exam Vital Signs Vital Signs Date Time Temp Pulse Resp B/P (MAP) Pulse Ox O2 Delivery O2 Flow Rate FiO2 04/30/17 09:06 16 04/30/17 08:00 74 04/30/17 08:00 97.4 79 21 181/111 (134) 92 04/30/17 07:56 97.4 79 21 181/111 (134) 92 04/30/17 05:03 71 173/91 (118) 04/30/17 02:36 65 197/95 (129) 04/30/17 01:04 79 18 97 04/30/17 00:35 79 18 160/79 (106) 97 Room Air 04/30/17 00:00 98.2 67 20 172/97 (122) 95 04/29/17 23:14 80 18 145/80 (101) 97 Room Air 04/29/17 22:10 18 97 04/29/17 21:15 98.2 67 16 169/91 (117) 96 Physical Exam GENERAL: This is a well-nourished, well-developed patient, in no apparent distress, btu appears in discomfort. SKIN: No rashes, ecchymoses or lesions. Warm and dry. HEAD: Atraumatic. Normocephalic. EYES: No scleral icterus. No injection or drainage. NECK: Trachea midline. CARDIOVASCULAR: Regular rate and rhythm without murmurs, gallops, or rubs. RESPIRATORY: Clear to auscultation. Breath sounds equal bilaterally. No wheezes , rales, or rhonchi. GASTROINTESTINAL: NABS. Abdomen soft, nondistended. Diffuse tenderness, but no guarding. No significant epigastric pain. NEUROLOGICAL: Awake and alert. Normal speech. Laboratory Laboratory Tests Test 04/29/17 22:10 04/30/17 04:50 White Blood Count 14.0 13.9 Red Blood Count 4.98 4.86 Hemoglobin 14.6 14.4 Hematocrit 44.8 43.9 Mean Corpuscular Volume 89.9 90.3 Mean Corpuscular Hemoglobin 29.2 29.6 Mean Corpuscular Hemoglobin Concent 32.5 32.8 Red Cell Distribution Width 13.3 13.3 Platelet Count 266 232 Mean Platelet Volume 8.6 8.9 Neutrophils (%) (Auto) 78.5 74.7 Lymphocytes (%) (Auto) 8.7 10.8 Monocytes (%) (Auto) 11.3 13.5 Eosinophils (%) (Auto) 0.5 0.5 Basophils (%) (Auto) 1.0 0.5 Neutrophils # (Auto) 11.0 10.3 Lymphocytes # (Auto) 1.2 1.5 Monocytes # (Auto) 1.6 1.9 Eosinophils # (Auto) 0.1 0.1 Basophils # (Auto) 0.1 0.1 CBC Comment DIFF FINAL DIFF FINAL Differential Comment Prothrombin Time 10.9 Prothromb Time International Ratio 1.0 Activated Partial Thromboplast Time 28.5 Urine Color YELLOW Urine Turbidity CLEAR Urine pH 5.5 Urine Specific Salol 1.021 Urine Protein NEG Urine Glucose (UA) NEG Urine Ketones NEG Urine Occult Blood SMALL Urine Nitrite NEG Urine Bilirubin MOD Urine Leukocyte Esterase NEG Urine RBC 0-3 Urine WBC 6-8 Urine WBC Clumps FEW Urine Squamous Epithelial Cells 0-5 Urine Mucus MOD Microscopic Urinalysis Comment CULTURE INDICATED Blood Urea Nitrogen 14 10 Creatinine 0.83 0.67 Random Glucose 140 101 Total Protein 7.3 7.1 Albumin 3.3 3.1 Calcium Level 8.3 7.8 Alkaline Phosphatase 146 148 Aspartate Amino Transf (AST/SGOT) 157 155 Alanine Aminotransferase (ALT/SGPT) 251 250 Total Bilirubin 5.0 5.6 Sodium Level 137 139 Potassium Level 3.6 3.5 Chloride Level 102 103 Carbon Dioxide Level 28.0 29.7 Anion Gap 7 6 Estimat Glomerular Filtration Rate 94 120 Lipase GREATER THAN [id number] Date/Time Source Procedure Growth Status 04/29/17 22:10 Urine Clean Catch Urine Culture Pending Received Result Diagram: 04/30/17 0450 04/30/17 0450 Caprini VTE Risk Assessment Caprini VTE Risk Assessment: Mod/High Risk (score >= 2) Caprini Risk Assessment Model Point Value = 1 Point Value = 2 Point Value = 3 Point Value = 5 Age 41-60 Minor surgery BMI > 25 kg/m2 Swollen legs Varicose veins or History of unexplained or recurrent spontaneous Oral contraceptives or hormone replacement Sepsis (< 1 month) Serious lung disease, including pneumonia (< 1 month) Abnormal pulmonary function Acute myocardial infarction Congestive heart failure (< 1 month) History of inflammatory bowel disease Medical patient at bed rest Age 61-74 Arthroscopic surgery Major open surgery (> 45 min) Laparoscopic surgery (> 45 min) Malignancy Confined to bed (> 72 hours) Immobilizing plaster cast Central venous access Age >= 75 History of VTE Family history of VTE Factor V Leiden Prothrombin [id number] Lupus anticoagulant Anticardiolipin antibodies Elevated serum homocysteine Heparin-induced thrombocytopenia Other congenital or acquired thrombophilia Stroke (< 1 month) Elective arthroplasty Hip, pelvis, or leg fracture Acute spinal cord injury (< 1 month) Prophylaxis Regimen Total Risk Factor Score Risk Level Prophylaxis Regimen 0-1 Low Early ambulation 2 Moderate Order ONE of the following: *Sequential Compression Device (SCD) *Heparin 5000 units SQ BID 3-4 Higher Order ONE of the following medications: *Heparin 5000 units SQ TID *Enoxaparin/Lovenox 40 mg SQ daily (WT < 150 kg, CrCl > 30 mL/min) *Enoxaparin/Lovenox 30 mg SQ daily (WT < 150 kg, CrCl > 10-29 mL/min) *Enoxaparin/Lovenox 30 mg SQ BID (WT < 150 kg, CrCl > 30 mL/min) AND/OR *Sequential Compression Device (SCD) 5 or more Highest Order ONE of the following medications: *Heparin 5000 units SQ TID (Preferred with Epidurals) *Enoxaparin/Lovenox 40 mg SQ daily (WT < 150 kg, CrCl > 30 mL/min) *Enoxaparin/Lovenox 30 mg SQ daily (WT < 150 kg, CrCl > 10-29 mL/min) *Enoxaparin/Lovenox 30 mg SQ BID (WT < 150 kg, CrCl > 30 mL/min) AND *Sequential Compression Device (SCD) Assessment and Plan Assessment and Plan 62 year old male with: Acute pancreatitis: Status post ERCP and cholecystectomy on 04/28/17. ED physician spoke with Dr. Anderson last night who states condition is secondary to ERCP and cholecystectomy. He does not believer there is a retained stone and does not request imaging. Lipase greater than 30,000-->27,058. White blood cell count 14-->13.9. Transaminitis- levels similar to when patient was admitted on 04/27 attributed to pancreatitis. BMP unremarkable. -Continue IV normal saline @ 125 mL/hr. -Patient currently on IV Dilaudid but has returning pain over 2 hours. Will add Oxycodone 5 mg q6h scheduled and oxycodone 10 mg q6h prn pain 1-7 retaining Dilaudid 1mg IV q4h prn pain 8-10. -Will advance diet, keep on heart healthy low-fat -Repeat and CBC, CMP, lipase level Possible UTI: Urinalysis was obtained in the ER revealing small occult blood, 6- 8 white blood cells, and few WBC clumps. There are no nitrites or leukocyte esterase present. Patient denies any dysuria. Will not treat at this time. Culture pending. HTN: BP 169/91 on arrival increased this morning at 181/111; did not receive his medication this morning. Also could be due to pain. -Continue home Atenolol. -PRN Clonidine GI prophylaxis: Constipation meds as indicated DVT prophylaxis: SCDs This note was transcribed by scribe. Peterson, Dr. Vidhya Benson personally performed the history, physical exam, and medical decision making; and confirmed the accuracy of the information in the transcribed note. Authenticated by Dr. Vidhya Benson on 04/30/17 at 13:50. Discussed Condition With patient Physician Certification 2 Midnight Certification Type: Admission for Inpatient Services Order for Inpatient Services The services are ordered in accordance with Medicare regulations or non- Medicare payer requirements, as applicable. In the case of services not specified as inpatient-only, they are appropriately provided as inpatient services in accordance with the 2-midnight benchmark. Estimated LOS (days): 2 days is the estimated time the patient will need to remain in the hospital, assuming treatment plan goals are met and no additional complications. Post-Hospital Plan: Home Kate Alejandre Apr 30, 2017 11:26 Vidhya Benson MD Apr 30, 2017 13:50
--- NOTE | 2017-04-30 11:59 | PD.CAR.PN ---
CVT Progress Note Subjective/Hospital Course: Patient known to me from recent admission. This 62-year-old gentleman was admitted with signs and symptoms of acute on chronic cholecystitis and choledocholithiasis with elevated bilirubin He underwent ERCP with cleaning of the sludge from the common bile duct which was followed by laparoscopic cholecystectomy Postoperatively bilirubin was on its way down to 2.3 g/dL and lipase post-ERCP started rising being about 3000 on the time of discharge Now patient comes back with rising lipase to 30,000 Lipase is now back on the way down and this is consistent with post ERCP acute pancreatitis Patient should be well-hydrated Clear Liquids and Not Advanced to any further diet I will see patient this afternoon and follow him PE (20.15 pm) Abdomen soft, distended with hypoactive BS Tender with back pain and consistent with acute pancreatitis. DON NOT ADVANCE BEYOND LIQUIDS PLEASE Objective: Vital Signs Date Time Temp Pulse Resp B/P (MAP) Pulse Ox O2 Delivery O2 Flow Rate FiO2 04/30/17 09:06 16 04/30/17 08:00 74 04/30/17 08:00 97.4 79 21 181/111 (134) 92 04/30/17 07:56 97.4 79 21 181/111 (134) 92 04/30/17 05:03 71 173/91 (118) 04/30/17 02:36 65 197/95 (129) 04/30/17 01:04 79 18 97 04/30/17 00:35 79 18 160/79 (106) 97 Room Air 04/30/17 00:00 98.2 67 20 172/97 (122) 95 04/29/17 23:14 80 18 145/80 (101) 97 Room Air 04/29/17 22:10 18 97 04/29/17 21:15 98.2 67 16 169/91 (117) 96 Labs: Laboratory Tests Test 04/30/17 04:50 White Blood Count 13.9 TH/MM3 (4.0-11.0) Red Blood Count 4.86 MIL/MM3 (4.50-5.90) Hemoglobin 14.4 GM/DL (13.0-17.0) Hematocrit 43.9 % (39.0-51.0) Mean Corpuscular Volume 90.3 FL (80.0-100.0) Mean Corpuscular Hemoglobin 29.6 PG (27.0-34.0) Mean Corpuscular Hemoglobin Concent 32.8 % (32.0-36.0) Red Cell Distribution Width 13.3 % (11.6-17.2) Platelet Count 232 TH/MM3 (150-450) Mean Platelet Volume 8.9 FL (7.0-11.0) Neutrophils (%) (Auto) 74.7 % (16.0-70.0) Lymphocytes (%) (Auto) 10.8 % (9.0-44.0) Monocytes (%) (Auto) 13.5 % (0.0-8.0) Eosinophils (%) (Auto) 0.5 % (0.0-4.0) Basophils (%) (Auto) 0.5 % (0.0-2.0) Neutrophils # (Auto) 10.3 TH/MM3 (1.8-7.7) Lymphocytes # (Auto) 1.5 TH/MM3 (1.0-4.8) Monocytes # (Auto) 1.9 TH/MM3 (0-0.9) Eosinophils # (Auto) 0.1 TH/MM3 (0-0.4) Basophils # (Auto) 0.1 TH/MM3 (0-0.2) CBC Comment DIFF FINAL Differential Comment Blood Urea Nitrogen 10 MG/DL (7-18) Creatinine 0.67 MG/DL (0.60-1.30) Random Glucose 101 MG/DL (74-106) Total Protein 7.1 GM/DL (6.4-8.2) Albumin 3.1 GM/DL (3.4-5.0) Calcium Level 7.8 MG/DL (8.5-10.1) Alkaline Phosphatase 148 U/L (45-117) Aspartate Amino Transf (AST/SGOT) 155 U/L (15-37) Alanine Aminotransferase (ALT/SGPT) 250 U/L (12-78) Total Bilirubin 5.6 MG/DL (0.2-1.0) Sodium Level 139 MEQ/L (136-145) Potassium Level 3.5 MEQ/L (3.5-5.1) Chloride Level 103 MEQ/L (98-107) Carbon Dioxide Level 29.7 MEQ/L (21.0-32.0) Anion Gap 6 MEQ/L (5-15) Estimat Glomerular Filtration Rate 120 ML/MIN (>89) Lipase 79520 U/L (73-393) Result Diagram: 04/30/17 0450 04/30/17 0450 Binu Anderson MD Apr 30, 2017 11:59
[2017-04-30] MEDS: ATENOLOL 25 MG TAB PO SCH ×2 (13:16→20:16)
[2017-04-30] MEDS ORDERED: IOHEXOL 350 MG/ML 10 ML VIAL (for RAD DIAG) IVCONTRAST ONE (21:21)
--- NOTE | 2017-04-30 22:26 | RADRPT ---
EXAM DATE/TIME: 04/30/2017 21:17 [facility] COMPARISON: CTA THORACIC ABDOMINAL AORTA W 3D RECON, April 27, 2017, 10:44. US ABDOMEN - GALLBLADDER, April 27, 2017, 11:08. GI LAB ERCP, April 28, 2017, 14:53. INDICATIONS : Acute pancreatitis status post ERCP and cholecystectomy. IV CONTRAST: 95 cc Omnipaque 350 (iohexol) IV ORAL CONTRAST: No oral contrast ingested. RADIATION DOSE: 18.20 CTDIvol (mGy) MEDICAL HISTORY : Hypertension. SURGICAL HISTORY : Cholecystectomy. ENCOUNTER: Initial ACUITY: 3 days PAIN SCALE: 9/10 LOCATION: middle abdomen TECHNIQUE: Volumetric scanning of the abdomen and pelvis was performed. Using automated exposure control and ad justment of the mA and/or kV according to patient size, radiation dose was kept as low as reasonably achievable to obtain optimal diagnostic quality images. DICOM format image data is available electro nically for review and comparison. FINDINGS: LOWER LUNGS: The visualized lower lungs are clear. Development of posterior pleural thickening small effusions nubia aterally LIVER: Homogeneous density without lesion. There is no dilation of the biliary tree. This in place interim cholecystectomy. There are postsurgical infiltrative or inflammatory changes in this region extending towards the right paracolic gutter with no evidence of organized fluid collection or free air or abs cess formation. SPLEEN: Normal size without lesion. PANCREAS: Within normal limits. KIDNEYS: Normal in size and shape. There is no mass, stone or hydronephrosis. ADRENAL GLANDS: Within normal limits. VASCULAR: There is no aortic aneurysm. BOWEL/MESENTERY: The stomach, small bowel, and colon demonstrate no acute abnormality. There is no free intraperitone al air or fluid. ABDOMINAL WALL: Within normal limits. RETROPERITONEUM: There is no lymphadenopathy. BLADDER: No wall thickening or mass. REPRODUCTIVE: Within normal limits. INGUINAL: There is no lymphadenopathy or hernia. MUSCULOSKELETAL: Facet arthritic changes of the lower lumbar spine CONCLUSION: Interim cholecystectomy with clips in place and postsurgical changes in the fat in the right upper qu adrant infiltrative or inflammatory changes extending to the right paracolic gutter. There is no evid ence of organized fluid collection free air or abscess formation. Alon Fernandez MD on April 30, 2017 at 22:20 Board Certified Radiologist. This report was verified electronically.
[2017-05-01] MEDS: SODIUM CHLOR 0.9% 1000 ML INJ 1,000 ML IV SCH ×4 (01:36→22:34)
[2017-05-01] MEDS: HYDROmorphone HCL PF 1 MG/ML VIAL IV PUSH PRN ×5 (03:51→20:14)
[2017-05-01 07:43] LABS: AUTOMATED NEUTROPHIL # 16.9 TH/MM3 (1.8-7.7); BASOPHIL % 0.2 % (0.0-2.0); EOSINOPHIL % 0.1 % (0.0-4.0); HEMATOCRIT 41.1 % (39.0-51.0); LYMPH % 5.8 % (9.0-44.0); LYMPHOCYTE # 1.2 TH/MM3 (1.0-4.8); MEAN CELL VOLUME 90.9 FL (80.0-100.0); MEAN CORPUSCULAR HEMOGLOBIN 29.7 PG (27.0-34.0); MEAN CORPUSCULAR HGB CONC 32.7 % (32.0-36.0); MONO % 10.5 % (0.0-8.0); NEUT % 83.4 % (16.0-70.0); PLATELET COUNT 195 TH/MM3 (150-450); RED BLOOD COUNT 4.52 MIL/MM3 (4.50-5.90); RED CELL DISTRIBUTION WIDTH 13.5 % (11.6-17.2); WHITE BLOOD COUNT 20.2 TH/MM3 (4.0-11.0)
[2017-05-01] MEDS: DOCUSATE SODIUM 50 MG/SENNA 8.6 MG TAB PO SCH ×3 (07:45→20:17)
[2017-05-01] MEDS: ATENOLOL 25 MG TAB PO SCH ×2 (07:45→20:13)
[2017-05-01] MEDS: SODIUM CHLORIDE 0.9% FLUSH 10 ML FLUSH IV FLUSH SCH ×2 (07:46→20:17)
[2017-05-01 07:54] LABS: CHLORIDE 98 MEQ/L (98-107); SODIUM (NA) 137 MEQ/L (136-145)
[2017-05-01 07:56] LABS: HEMO FLAGS AUTO DIFF
[2017-05-01 08:00] VITALS: BP 140/71; PULSE 82; RESP 16; TEMP 99.8; O2SAT 92
[2017-05-01 08:02] LABS: ANION GAP 9 MEQ/L (5-15); BICARBONATE 30.3 MEQ/L (21.0-32.0); BLOOD UREA NITROGEN 12 MG/DL (7-18)
[2017-05-01 08:05] LABS: ALT (GPT) 222 U/L (12-78); AST (GOT) 118 U/L (15-37); GLOMERULAR FILTRATION RATE 118 ML/MIN (>89)
[2017-05-01 08:07] LABS: ALKALINE PHOSPHATASE 174 U/L (45-117)
[2017-05-01 09:04] LABS: SCAN/DIFF AUTO DIFF CONFIRMED
--- NOTE | 2017-05-01 10:29 | PD.CAR.PN ---
CVT Progress Note Subjective/Hospital Course: Patient known to me from recent admission. This 62-year-old gentleman was admitted with signs and symptoms of acute on chronic cholecystitis and choledocholithiasis with elevated bilirubin He underwent ERCP with cleaning of the sludge from the common bile duct which was followed by laparoscopic cholecystectomy Postoperatively bilirubin was on its way down to 2.3 g/dL and lipase post-ERCP started rising being about 3000 on the time of discharge Now patient comes back with rising lipase to 30,000 Lipase is now back on the way down and this is consistent with post ERCP acute pancreatitis Patient should be well-hydrated Clear Liquids and Not Advanced to any further diet I will see patient this afternoon and follow him PE (20.15 pm) Abdomen soft, distended with hypoactive BS Tender with back pain and consistent with acute pancreatitis. DON NOT ADVANCE BEYOND LIQUIDS PLEASE 05/01/17 Discussed care with patient last night Abdomen was soft with hypoactive bowel sounds and I reviewed CAT scan today Postsurgical changes are as expected and pancreas does not appear to be inflamed beyond what I expected While the LFTs are holding and bilirubin is slightly down, lipase has precipitously dropped from 27,000 down to 800 Would leave on clear liquids for another day and then place a low-fat diet tomorrow He will take a few days for patient to recover from this bout of pancreatitis Objective: Vital Signs Date Time Temp Pulse Resp B/P (MAP) Pulse Ox O2 Delivery O2 Flow Rate FiO2 05/01/17 08:00 99.8 82 16 140/71 (94) 92 05/01/17 07:07 18 04/30/17 23:50 99.9 84 20 136/64 (88) 93 04/30/17 20:00 100.0 85 18 122/77 (92) 93 04/30/17 16:00 99.7 71 20 159/86 (110) 93 04/30/17 13:49 16 04/30/17 12:00 97.8 82 20 170/86 (114) 93 Labs: Laboratory Tests Test 05/01/17 06:15 White Blood Count 20.2 TH/MM3 (4.0-11.0) Red Blood Count 4.52 MIL/MM3 (4.50-5.90) Hemoglobin 13.4 GM/DL (13.0-17.0) Hematocrit 41.1 % (39.0-51.0) Mean Corpuscular Volume 90.9 FL (80.0-100.0) Mean Corpuscular Hemoglobin 29.7 PG (27.0-34.0) Mean Corpuscular Hemoglobin Concent 32.7 % (32.0-36.0) Red Cell Distribution Width 13.5 % (11.6-17.2) Platelet Count 195 TH/MM3 (150-450) Mean Platelet Volume 9.1 FL (7.0-11.0) Neutrophils (%) (Auto) 83.4 % (16.0-70.0) Lymphocytes (%) (Auto) 5.8 % (9.0-44.0) Monocytes (%) (Auto) 10.5 % (0.0-8.0) Eosinophils (%) (Auto) 0.1 % (0.0-4.0) Basophils (%) (Auto) 0.2 % (0.0-2.0) Neutrophils # (Auto) 16.9 TH/MM3 (1.8-7.7) Lymphocytes # (Auto) 1.2 TH/MM3 (1.0-4.8) Monocytes # (Auto) 2.1 TH/MM3 (0-0.9) Eosinophils # (Auto) 0.0 TH/MM3 (0-0.4) Basophils # (Auto) 0.0 TH/MM3 (0-0.2) CBC Comment AUTO DIFF Differential Comment AUTO DIFF CONFIRMED Blood Urea Nitrogen 12 MG/DL (7-18) Creatinine 0.68 MG/DL (0.60-1.30) Random Glucose 83 MG/DL (74-106) Total Protein 6.5 GM/DL (6.4-8.2) Albumin 2.7 GM/DL (3.4-5.0) Calcium Level 7.9 MG/DL (8.5-10.1) Alkaline Phosphatase 174 U/L (45-117) Aspartate Amino Transf (AST/SGOT) 118 U/L (15-37) Alanine Aminotransferase (ALT/SGPT) 222 U/L (12-78) Total Bilirubin 5.0 MG/DL (0.2-1.0) Sodium Level 137 MEQ/L (136-145) Potassium Level 3.0 MEQ/L (3.5-5.1) Chloride Level 98 MEQ/L (98-107) Carbon Dioxide Level 30.3 MEQ/L (21.0-32.0) Anion Gap 9 MEQ/L (5-15) Estimat Glomerular Filtration Rate 118 ML/MIN (>89) Lipase 851 U/L (73-393) Result Diagram: 05/01/1715 05/01/17 0615 Binu Anderson MD May 01, 2017 10:29
[2017-05-01] MEDS: cefTRIAXone INJ 1,000 MG in SODIUM CHLORIDE 0.9% INJ 100 ML IV SCH (11:55)
[2017-05-01 12:00] VITALS: BP 150/80; PULSE 81; RESP 16; TEMP 98.7; O2SAT 93
[2017-05-01] MEDS ORDERED: POTASSIUM CHLORIDE 20 MEQ CONTROLLED RELEASE TAB PO ONE (12:15)
--- NOTE | 2017-05-01 13:16 | HHI.PR ---
Subjective Remarks Patient states pain is somewhat improved. No nausea or vomiting. Tolerating clear liquid diet. He had a bowel movement this morning and states his abdomen feels less distended. Objective Vitals Vital Signs Date Time Temp Pulse Resp B/P (MAP) Pulse Ox O2 Delivery O2 Flow Rate FiO2 05/01/17 13:01 18 05/01/17 12:30 18 05/01/17 12:00 98.7 81 16 150/80 (103) 93 05/01/17 11:35 18 05/01/17 08:00 99.8 82 16 140/71 (94) 92 04/30/17 23:50 99.9 84 20 136/64 (88) 93 04/30/17 20:00 100.0 85 18 122/77 (92) 93 04/30/17 16:00 99.7 71 20 159/86 (110) 93 I/O 04/30/17 04/30/17 04/30/17 05/01/17 05/01/17 05/01/17 06:59 14:59 22:59 06:59 14:59 22:59 Intake Total 3370 ml 300 ml 350 ml 300 ml Output Total 750 ml 1 ml Balance 3370 ml 300 ml -400 ml 299 ml Intake Oral 350 ml 300 ml IV Total 3370 ml 300 ml Output Urine Total 750 ml Stool Total 1 ml # Voids 4 1 # Bowel Movements 1 Result Diagram: 05/01/1761405/01/17614 Objective Remarks GENERAL: Well-nourished, well-developed patient. SKIN: Warm and dry. HEAD: Normocephalic. EYES: No scleral icterus. No injection or drainage. NECK: Supple, trachea midline. No JVD or lymphadenopathy. CARDIOVASCULAR: Regular rate and rhythm without murmurs, gallops, or rubs. RESPIRATORY: Breath sounds equal bilaterally. No accessory muscle use. GASTROINTESTINAL: Abdomen soft, non-tender, nondistended. EXTREMITIES: No cyanosis, or edema. NEUROLOGICAL: Awake, alert, and oriented x 3. Non-focal. A/P Problem List: (1) Acute pancreatitis ICD Code: K85.90 - Acute pancreatitis without necrosis or infection, unspecified (2) Postoperative or surgical complication ICD Code: T81.9XXA - Unspecified complication of procedure, initial encounter (3) HTN (hypertension) ICD Code: I10 - Essential (primary) hypertension (4) UTI (urinary tract infection) ICD Code: N39.0 - Urinary tract infection, site not specified (5) Leukocytosis ICD Code: D72.829 - Elevated white blood cell count, unspecified Assessment and Plan -Post ERCP pancreatitis. Improved. Continue clear liquid diet, pain medication. -Leukocytosis. Likely due to demargination status status post laparoscopic cholecystectomy on April 28. UTI, catheter associated as he had Wallace during his previous hospitalization. Start Rocephin IV. -Hypertension. Blood pressure stable. Continue atenolol, clonidine as needed. -Transaminitis secondary to recent gallstones and surgery. Trending down. Appreciate general surgery input. -Hypokalemia. Replete. -DVT prophylaxis with SCDs. Problem Qualifiers (1) Acute pancreatitis: Vidhya Benson MD May 01, 2017 13:16
[2017-05-01 16:00] VITALS: BP 169/88; PULSE 86; RESP 16; TEMP 97; O2SAT 95
[2017-05-01] MEDS: cloNIDine HCL 0.1 MG TAB PO PRN (17:41)
[2017-05-01 20:55] VITALS: BP 137/72; PULSE 88; RESP 18; TEMP 100.6; O2SAT 95
[2017-05-02] VITALS (7 sets, daily range): BP systolic 137–178; BP diastolic 74–97; PULSE 72–90; RESP 20–22; TEMP 97.5–100.7; O2SAT 95–96
[2017-05-02] MEDS: HYDROmorphone HCL PF 1 MG/ML VIAL IV PUSH PRN ×4 (00:59→18:12)
[2017-05-02] MEDS: SODIUM CHLOR 0.9% 1000 ML INJ 1,000 ML IV SCH ×3 (06:06→23:38)
[2017-05-02 08:25] LABS: POTASSIUM 3.3 MEQ/L (3.5-5.1)
[2017-05-02 08:29] LABS: AUTOMATED NEUTROPHIL # 11.5 TH/MM3 (1.8-7.7); BASOPHIL # 0.1 TH/MM3 (0-0.2); BASOPHIL % 0.9 % (0.0-2.0); EOSINOPHIL # 0.1 TH/MM3 (0-0.4); HEMATOCRIT 38.2 % (39.0-51.0); LYMPH % 9.4 % (9.0-44.0); LYMPHOCYTE # 1.4 TH/MM3 (1.0-4.8); MEAN CELL VOLUME 90.8 FL (80.0-100.0); MEAN CORPUSCULAR HEMOGLOBIN 30.1 PG (27.0-34.0); MEAN CORPUSCULAR HGB CONC 33.2 % (32.0-36.0); MONO % 10.8 % (0.0-8.0); NEUT % 77.9 % (16.0-70.0); PLATELET COUNT 199 TH/MM3 (150-450); RED BLOOD COUNT 4.21 MIL/MM3 (4.50-5.90); RED CELL DISTRIBUTION WIDTH 13.6 % (11.6-17.2); WHITE BLOOD COUNT 14.7 TH/MM3 (4.0-11.0)
[2017-05-02] MEDS: ATENOLOL 25 MG TAB PO SCH ×2 (08:30→20:59)
[2017-05-02] MEDS: DOCUSATE SODIUM 50 MG/SENNA 8.6 MG TAB PO SCH ×2 (08:31→20:59)
[2017-05-02] MEDS: SODIUM CHLORIDE 0.9% FLUSH 10 ML FLUSH IV FLUSH SCH ×2 (08:31→20:59)
[2017-05-02 08:34] LABS: HEMO FLAGS DIFF FINAL
[2017-05-02] MEDS: cefTRIAXone INJ 1,000 MG in SODIUM CHLORIDE 0.9% INJ 100 ML IV SCH (11:40)
[2017-05-02] MEDS ORDERED: POTASSIUM CHLORIDE 10 MEQ CONTROLLED RELEASE TAB PO ONE (12:15)
--- NOTE | 2017-05-02 13:57 | HHI.PR ---
Subjective Remarks Epigastric pain is improved, currently 3 out of 10. No nausea or vomiting. Tolerated broth. Low-grade fevers last night. Blood pressure improved. Objective Vitals Vital Signs Date Time Temp Pulse Resp B/P (MAP) Pulse Ox O2 Delivery O2 Flow Rate FiO2 05/02/17 11:50 98.1 83 20 158/94 (115) 05/02/17 07:50 98.0 86 20 159/89 (112) 95 05/02/17 04:49 99.2 84 20 137/79 (98) 95 05/02/17 04:07 05/02/17 01:24 100.7 72 22 148/79 (102) 96 05/01/17 20:55 100.6 88 18 137/72 (93) 95 05/01/17 18:42 18 05/01/17 16:38 18 05/01/17 16:00 97.0 86 16 169/88 (115) 95 I/O 05/01/17 05/01/17 05/01/17 05/02/17 05/02/17 05/02/17 07:00 15:00 23:00 07:00 15:00 23:00 Intake Total 2235 ml 925 ml 1563 ml Output Total 401 ml 1 ml 800 ml Balance 1834 ml 924 ml 763 ml Intake Oral 1260 ml 300 ml 240 ml IV Total 975 ml 625 ml 1323 ml Output Urine Total 400 ml 800 ml Stool Total 1 ml 1 ml # Voids 1 1 # Bowel Movements 1 Result Diagram: 05/02/17 0635 05/02/17 0635 Objective Remarks GENERAL: Well-nourished, well-developed patient. SKIN: Warm and dry. HEAD: Normocephalic. EYES: No scleral icterus. No injection or drainage. NECK: Supple, trachea midline. No JVD or lymphadenopathy. CARDIOVASCULAR: Regular rate and rhythm without murmurs, gallops, or rubs. RESPIRATORY: Breath sounds equal bilaterally. No accessory muscle use. GASTROINTESTINAL: Abdomen soft, non-tender, nondistended. EXTREMITIES: No cyanosis, or edema. NEUROLOGICAL: Awake, alert, and oriented x 3. Non-focal. A/P Problem List: (1) Acute pancreatitis ICD Code: K85.90 - Acute pancreatitis without necrosis or infection, unspecified (2) Postoperative or surgical complication ICD Code: T81.9XXA - Unspecified complication of procedure, initial encounter (3) HTN (hypertension) ICD Code: I10 - Essential (primary) hypertension (4) UTI (urinary tract infection) ICD Code: N39.0 - Urinary tract infection, site not specified (5) Leukocytosis ICD Code: D72.829 - Elevated white blood cell count, unspecified Assessment and Plan -Post ERCP pancreatitis. Improved. Advance diet to heart healthy low fat. Use Dilaudid by mouth for pain control with Dilaudid IV for breakthrough pain. -Leukocytosis. Likely due to demargination status status post laparoscopic cholecystectomy on April 28. -Abnormal UA, recent Wallace catheter. Urine cultures no growth at 48 hours. Will DC Rocephin tomorrow for a remain negative. -Hypertension. Blood pressure stable. Continue atenolol, clonidine as needed. -Transaminitis secondary to recent gallstones and surgery. Trending down. Appreciate general surgery input. -Hypokalemia. Replete. -DVT prophylaxis with SCDs. Discussed with patient's at bedside. Problem Qualifiers (1) Acute pancreatitis: Vidhya Benson MD May 02, 2017 13:57
[2017-05-02] MEDS: HYDROmorphone HCL 4 MG TAB PO PRN ×2 (15:40→21:00)
[2017-05-02] MEDS: cloNIDine HCL 0.1 MG TAB PO PRN (15:42)
[2017-05-03 00:48] VITALS: BP 151/77; PULSE 86; RESP 22; TEMP 101.2; O2SAT 95
[2017-05-03 03:19] VITALS: TEMP 97.3
[2017-05-03 04:18] VITALS: BP 155/76; PULSE 78; RESP 16; TEMP 97.9; O2SAT 94
[2017-05-03 05:41] LABS: CHLORIDE 103 MEQ/L (98-107); POTASSIUM 3.3 MEQ/L (3.5-5.1); SODIUM (NA) 138 MEQ/L (136-145)
[2017-05-03 05:47] LABS: ANION GAP 6 MEQ/L (5-15); BLOOD UREA NITROGEN 10 MG/DL (7-18)
[2017-05-03 05:50] LABS: ALT (GPT) 114 U/L (12-78); AST (GOT) 38 U/L (15-37); GLOMERULAR FILTRATION RATE 144 ML/MIN (>89)
[2017-05-03 06:11] LABS: ALKALINE PHOSPHATASE 154 U/L (45-117); TOTAL BILIRUBIN ADULT 2.2 MG/DL (0.2-1.0)
[2017-05-03] MEDS: SODIUM CHLORIDE 0.9% FLUSH 10 ML FLUSH IV FLUSH SCH (07:33)
[2017-05-03 08:00] VITALS: BP 173/105; PULSE 79; RESP 18; TEMP 97.9; O2SAT 96
[2017-05-03] MEDS: DOCUSATE SODIUM 50 MG/SENNA 8.6 MG TAB PO SCH (08:11)
[2017-05-03] MEDS: ATENOLOL 25 MG TAB PO SCH (08:11)
[2017-05-03] MEDS: SODIUM CHLOR 0.9% 1000 ML INJ 1,000 ML IV SCH (08:11)
[2017-05-03] MEDS: HYDROmorphone HCL 4 MG TAB PO PRN (08:11)
[2017-05-03] MEDS ORDERED: POTASSIUM CHLORIDE 10 MEQ CONTROLLED RELEASE TAB PO ONE (08:45)
--- NOTE | 2017-05-03 09:38 | HHI.PR ---
Subjective Remarks Patient having moderate pain in the right lower abdomen and "all over" his abdomen. He ate roast beef for dinner last night and tolerated that well. No nausea or vomiting. Patient would like to go home to see his dogs, however he is also anxious about being discharged home because he does not want to have to return to the hospital. Patient had a fever of 102 last night. Objective Vitals Vital Signs Date Time Temp Pulse Resp B/P (MAP) Pulse Ox O2 Delivery O2 Flow Rate FiO2 05/03/17 08:00 97.9 79 18 173/105 (127) 96 05/03/17 04:18 97.9 78 16 155/76 (102) 94 05/03/17 03:19 97.3 05/03/17 00:48 101.2 86 22 151/77 (101) 95 05/02/17 21:14 98.8 90 20 139/74 (95) 96 05/02/17 18:28 154/88 (110) 05/02/17 15:50 97.5 80 20 178/97 (124) 96 05/02/17 11:50 98.1 83 20 158/94 (115) I/O 05/02/17 05/02/17 05/02/17 05/03/17 05/03/17 05/03/17 07:00 15:00 23:00 07:00 15:00 23:00 Intake Total 1563 ml 100 ml 2200 ml 1704 ml Output Total 800 ml 1050 ml 1350 ml Balance 763 ml 100 ml 1150 ml 354 ml Intake Oral 240 ml 970 ml 360 ml IV Total 1323 ml 100 ml 1230 ml 1344 ml Output Urine Total 800 ml 1050 ml 1350 ml # Bowel Movements 0 0 Result Diagram: 05/02/17 0635 05/03/17 0453 Objective Remarks GENERAL: Well-nourished, well-developed patient. SKIN: Warm and dry. HEAD: Normocephalic. EYES: No scleral icterus. No injection or drainage. NECK: Supple, trachea midline. No JVD or lymphadenopathy. CARDIOVASCULAR: Regular rate and rhythm without murmurs, gallops, or rubs. RESPIRATORY: Breath sounds equal bilaterally. No accessory muscle use. GASTROINTESTINAL: Abdomen soft, non-tender, nondistended. EXTREMITIES: No cyanosis, or edema. NEUROLOGICAL: Awake, alert, and oriented x 3. Non-focal. A/P Problem List: (1) Acute pancreatitis ICD Code: K85.90 - Acute pancreatitis without necrosis or infection, unspecified (2) Postoperative or surgical complication ICD Code: T81.9XXA - Unspecified complication of procedure, initial encounter (3) HTN (hypertension) ICD Code: I10 - Essential (primary) hypertension (4) UTI (urinary tract infection) ICD Code: N39.0 - Urinary tract infection, site not specified (5) Leukocytosis ICD Code: D72.829 - Elevated white blood cell count, unspecified Assessment and Plan -Post ERCP pancreatitis. Improved. Lipase now normal. Advance diet to heart healthy low fat. Use Dilaudid by mouth for pain control with Dilaudid IV for breakthrough pain. -Leukocytosis. Likely due to demargination status status post laparoscopic cholecystectomy on April 28. -Abnormal UA, recent Wallace catheter. Urine cultures no growth at 48 hours. Will DC Rocephin if cultures remain negative today. -Hypertension. Blood pressure stable. Continue atenolol, clonidine as needed. -Transaminitis secondary to recent gallstones and surgery. Trending down. Appreciate general surgery input. -Hypokalemia. Replete. -DVT prophylaxis with SCDs. Discharge Planning Possible discharge home this afternoon if pain controlled on oral medications. Problem Qualifiers (1) Acute pancreatitis: Vidhya Benson MD May 03, 2017 09:38
[2017-05-03] MEDS ORDERED: COLA100C PO (11:58)
[2017-05-03] MEDS ORDERED: DILA4TAB2 PO (11:58)
[2017-05-03 12:00] VITALS: BP 153/98; PULSE 80; RESP 17; TEMP 97.7; O2SAT 97
[2017-05-03] MEDS: cefTRIAXone INJ 1,000 MG in SODIUM CHLORIDE 0.9% INJ 100 ML IV SCH (12:00)
--- NOTE | 2017-05-03 12:11 | HHI.DS ---
Discharge Summary Admission Date Apr 30, 2017 at 08:39 Discharge Date: May 03, 2017 Admitting Diagnosis idiopathic acute pancreatitis (1) Acute pancreatitis ICD Code: K85.90 - Acute pancreatitis without necrosis or infection, unspecified (2) Postoperative or surgical complication ICD Code: T81.9XXA - Unspecified complication of procedure, initial encounter (3) HTN (hypertension) ICD Code: I10 - Essential (primary) hypertension (4) Leukocytosis ICD Code: D72.829 - Elevated white blood cell count, unspecified Procedures None Brief History - From Admission Written by Kate Alejandre PA-C acting as scribe for Dr. Benson on 04/30/17 at 1126. 62-year-old male with history of hypertension and hyperlipidemia with a recent diagnosis of cholelithiasis and ERCP with subsequent cholecystectomy on 04/28/17 returns with abdominal pain. Patient was discharged from the hospital yesterday, went home for 3 hours, and then returned to ED last night. He states he was watching TV drinking ice water when he experienced pain describing it as "pressure" over the entire abdomen and also experienced lower back pain although does have chronic back pain. Currently receiving Dilaudid, but states pain worsens every 2 hours. He states abdominal pain is worse than back pain. He denies any nausea or vomiting. Admits to small bowel movement yesterday but denies any blood in his stool. Admits to generalized weakness from not eating. Denies chest pain. Denies dysuria. CBC/BMP: 05/02/17 0635 05/03/17 0453 Significant Findings Laboratory Tests Test 05/01/17 06:15 05/02/17 06:35 05/03/17 04:53 White Blood Count 20.2 TH/MM3 (4.0-11.0) 14.7 TH/MM3 (4.0-11.0) Neutrophils (%) (Auto) 83.4 % (16.0-70.0) 77.9 % (16.0-70.0) Lymphocytes (%) (Auto) 5.8 % (9.0-44.0) Monocytes (%) (Auto) 10.5 % (0.0-8.0) 10.8 % (0.0-8.0) Neutrophils # (Auto) 16.9 TH/MM3 (1.8-7.7) 11.5 TH/MM3 (1.8-7.7) Monocytes # (Auto) 2.1 TH/MM3 (0-0.9) 1.6 TH/MM3 (0-0.9) Albumin 2.7 GM/DL (3.4-5.0) 2.3 GM/DL (3.4-5.0) Calcium Level 7.9 MG/DL (8.5-10.1) 7.7 MG/DL (8.5-10.1) 8.1 MG/DL (8.5-10.1) Alkaline Phosphatase 174 U/L (45-117) 154 U/L (45-117) Aspartate Amino Transf (AST/SGOT) 118 U/L (15-37) 38 U/L (15-37) Alanine Aminotransferase (ALT/SGPT) 222 U/L (12-78) 114 U/L (12-78) Total Bilirubin 5.0 MG/DL (0.2-1.0) 2.2 MG/DL (0.2-1.0) Potassium Level 3.0 MEQ/L (3.5-5.1) 3.3 MEQ/L (3.5-5.1) 3.3 MEQ/L (3.5-5.1) Lipase 851 U/L (73-393) Red Blood Count 4.21 MIL/MM3 (4.50-5.90) Hemoglobin 12.7 GM/DL (13.0-17.0) Hematocrit 38.2 % (39.0-51.0) Creatinine 0.56 MG/DL (0.60-1.30) 0.57 MG/DL (0.60-1.30) PE at Discharge GENERAL: Well-nourished, well-developed patient. SKIN: Warm and dry. HEAD: Normocephalic. EYES: No scleral icterus. No injection or drainage. NECK: Supple, trachea midline. No JVD or lymphadenopathy. CARDIOVASCULAR: Regular rate and rhythm without murmurs, gallops, or rubs. RESPIRATORY: Breath sounds equal bilaterally. No accessory muscle use. GASTROINTESTINAL: Abdomen soft, non-tender, nondistended. EXTREMITIES: No cyanosis, or edema. NEUROLOGICAL: Awake, alert, and oriented x 3. Non-focal. Hospital Course The patient was admitted to the hospital and treated for pancreatitis with IV fluids and pain medication. Dr. Anderson was consulted. Patient's lipase trended down to normal. Pain improved. Patient was treated with antibiotic for possible UTI however cultures were negative. The patient is tolerating a low-fat diet. He'll be discharged home today with a prescription for Dilaudid. The patient and his were given a handout on low-fat diet. Follow-up with PCP in one week. Pt Condition on Discharge: Stable Discharge Disposition: Discharge Home Discharge Time: <= 30 minutes Discharge Instructions DIET: Follow Instructions for: Heart Healthy Diet, Low Fat Diet Activities you can perform: Regular-No Restrictions Follow up Referrals: PCP Follow-up - 1 Week Surgical - 10 Days with Binu Anderson MD New Medications: Docusate Sodium (Colace) 100 Mg Capsule 1 CAP PO BID for constipation, #60 CAP Hydromorphone (Dilaudid) 4 Mg Tab 4 MG PO Q4H PRN for pain 1-10, #30 TAB Continued Medications: Atenolol (Atenolol) 25 Mg Tab 25 MG PO BID for Blood Pressure Management, #60 TAB 0 Refills Potassium Chloride ER (Potassium Chloride ER) 10 Meq Cap 10 MEQ PO DAILY for Electrolyte Replacement, CAP 0 Refills Tramadol (Tramadol) 50 Mg Tab 50 MG PO Q6H PRN for PAIN, TAB 0 Refills Vidhya Benson MD May 03, 2017 12:11
== END 2017-05-03 13:03 | disposition home or self-care (01) | DRG 393 ==
LOC: PHED 20:49 → PHEDA 23:43 → INTOOBSV 23:43 → PH3B 04-30 00:54 → OBSVTOIN 04-30 08:39
PROVIDERS: ADMIT Family Medicine; ATTEND Family Medicine
DX: K91.89 Other postprocedural complications and disorders of digestive system (principal); K85.80 Other acute pancreatitis without necrosis or infection; I10 Essential (primary) hypertension; E78.5 Hyperlipidemia, unspecified; E87.6 Hypokalemia; G89.29 Other chronic pain; D72.829 Elevated white blood cell count, unspecified; K59.00 Constipation, unspecified; R82.99 Other abnormal findings in urine; Y83.8 Other surgical procedures as the cause of abnormal reaction of the patient, or of later complication, without mention of misadventure at the time of the procedure
CPT/HCPCS: 74177; 76937; 80048; 80053; 81001; 83690; 85025; 85610; 85730; 87086; J0696; J1170; J2405; J7030; Q9967